=== PATIENT | female | born 1965 | race Caucasian/White ===

== ENCOUNTER → 2018-04-21 08:58 | Outpatient (POV) | payer BC, SELFPAY | PROVIDERS: Visit Provider Dermatology | DX: Z00.00 Encounter for general adult medical examination without abnormal findings (principal) ==

== ENCOUNTER → 2021-02-13 10:44 | Outpatient (POV) | payer BC, SELFPAY | PROVIDERS: Visit Provider Dermatology | DX: Z00.00 Encounter for general adult medical examination without abnormal findings (principal) ==

== ENCOUNTER 2025-04-15 11:15 | Outpatient (CLI) | payer BC, SELFPAY ==
--- OUTSIDE RECORDS SUMMARY | 2025-04-15 11:18 | XMS_ITS | CCD ---
Author Name Interface, [email or web address] lity Address [address] [place] [address] Organization [facility] Address [address] [place] [address] Care Team Providers Care Sales Department Clerk Name Role Phone Martin JOEL, Antoine Norris Unavailable Unavailable Allergies and Adverse Reactions Medication/Group Name Reaction Severity Date Lortab 09/22/2018 Sulfa (Sulfonamide Antibiotics) 09/22/2018 Reason for Visit 3 mo fu Functional Status Date Name/Question Score/Answer 09/22/2018 ECOG performance status - grade 0 0 06/23/2018 ECOG performance status - grade 0 0 Medications Date Name Route Dose Frequency Instructions Start Date End Date Status Fill Status Indication 06/23 Alprazo ritchie Oral orally 0.25 mg 2 times per day active 06/23 Ibuprof en Oral orally 1.0 capsul e every 6 to 8 hours prn fever active 06/23 Ranitid ine Oral orally 150.0 mg daily active 06/23 Multivi tamins Oral Tablet active 06/23 Fluocin onide Topical Cream 0.05 % topicall y 1.0 2 to 4 times per day prn itching active Problems Diagnosis Status Date of Diagnosis Resolution Date Inguinal lymphadenopathy Active Iliac lymphadenopathy Active Psoriasis Active Migraine headache Active History of hysterectomy Active Abdominal pain (finding) Active Social History Date Name Value 06/08/2018 Sex Female
--- OUTSIDE RECORDS SUMMARY | 2025-04-15 11:18 | XMS_ITS ---
Author Name Interface, [email or web address] lity Address [address] [id number] Organization [facility] Address [address] [place] [address] Allergies and Adverse Reactions Medication/Group Name Reaction Severity Date Lortab 09/22/2018 Sulfa (Sulfonamide Antibiotics) 09/22/2018 Plan Date Type Value 09/22/2018 APPOINTMENT 3 mo md leonard 09/22/2018 APPOINTMENT 3 mo md leonard 10/05/2018 LAB_ORDER CT abdomen/pelvi s w/ contrast Reason for Visit 3 mo md leonard Encounters Date Name 09/22/2018 History of hysterect jayleen 09/22/2018 Iliac lymphadenopath y 09/22/2018 Inguinal lymphadenop athy Medications Date Name Route Dose Frequency Instructions Start Date End Date Status Fill Status Indication 06/23 Multivi tamins Oral Tablet active 06/23 Fluocin onide Topical Cream 0.05 % topicall y 1.0 2 to 4 times per day prn itching active 06/23 Ranitid ine Oral orally 150.0 mg daily active 06/23 Alprazo ritchie Oral orally 0.25 mg 2 times per day active 06/23 Ibuprof en Oral orally 1.0 capsul e every 6 to 8 hours prn fever active Problems Diagnosis Status Date of Diagnosis Resolution Date Inguinal lymphadenopathy Active Iliac lymphadenopathy Active Psoriasis Active Migraine headache Active History of hysterectomy Active Abdominal pain (finding) Active Vital Signs Date Type Value 09/22/2018 Body Temperature 98.00 09/22/2018 Heart Beat 82.00 09/22/2018 Respiratory Rate 14.00 09/22/2018 Intravascular Systolic 120 09/22/2018 Intravascular Diastolic 82 09/22/2018 BSA 1.89 09/22/2018 Weight 169.40 09/22/2018 Height 66.00 09/22/2018 BMI 27.34 09/22/2018 Pain Scale 2.00
--- OUTSIDE RECORDS SUMMARY | 2025-04-15 11:18 | XMS_ITS | Data Portability ---
[facility] Address [address] [place] [address] Care Team Providers Care Frog Farmer Name Role Phone LARRY YAN Primary Care Provider Assessment No assessment recorded. Plan of Treatment Reminders Order Date Submit Date Provider Last Modified By Organization Details Last Modified Time Details Appointments None recorded. Lab None recorded. Referral None recorded. Procedures None recorded. Surgeries None recorded. Imaging XR, knee [address], [address] [place] [address] [place], [address], 5 07:19:05 XR, knee [address], [address] [place] [address] [place], [address], 5 07:19:05 Medication Orders Kenalog 10 mg/mL suspension for injection [address] [facility] [place], [address], 5 07:19:05 bupivacaine (PF) 0.5 % (5 mg/mL) injection solution [address] [facility] [place], [address], 5 07:19:05 Patient TargetsNo targets recorded. Patient InstructionsNo instructions recorded. Reason for Referral None Reported. Results Created Date Observation Date Name Description Value Unit Range Abnormal Flag Note LastModifiedBy Organization Detail LastModifiedTime 02/18/20 25 XR, knee No observ ation record ed. [address] [place], [address], 02/17/2025 10:24:06 02/18/20 25 XR, knee No observ ation record ed. [address] [place], [address], 02/17/2025 10:23:54 Result Notes None recorded. Medical Equipment None Reported. Medications Name Sig Start Date Stop Date Status Note LastModified by Organization Details LastModified Time Kenalog 10 mg/mL suspension for injection Take 2 mL by injection route. 2024 active Not Available Not Available Not Avai lable buspirone 7.5 mg tablet TAKE 1 TABLET BY MOUTH TWICE DAILY active Not Available Not Available No t Available bupivacaine (PF) 0.5 % (5 mg/mL) injection solution Take 2 mL by injection route. 2024 active Not Available Not Available Not Avai lable duloxetine 20 mg capsule,delay ed release TAKE 1 CAPSULE BY MOUTH ONCE DAILY active Not Available Not Available No t Available Vitals None Recorded Social History None recorded. Functional Status None recorded. Mental Status None recorded. Family History Relationship Description Onset Age of this Age Resolved Age Notes LastModified by Organization Details LastModified Time Mother Myocardial infarction pt. added direct ly (02/17) [email or web address] Not available 02/17/2025 09:16:46 Mother Hypertensive disorder pt. added direct ly (02/17) [email or web address]-13 Not available 02/17/2025 09:16:46 Medical History No medical history recorded. Gynecological HistoryNo gynecological history recorded. Obstetrics History GPAL:G 0 P 0 0 0 0 Immunizations Vaccine Type Date Status Note Provider Nam e and Address Organization Details Recorded Time [facility] 8 completed Not Available [facility] 02/17/2025 09:24:06 DTP 8 completed Not Available [facility] 02/17/2025 09:24:06 DTP 8 completed Not Available [facility] 02/17/2025 09:24:06 DTP 8 completed Not Available [facility] 02/17/2025 09:24:06 measles 9 completed Not Available [facility] 02/17/2025 09:24:06 DTP 9 completed Not Available [facility] 02/17/2025 09:24:06 rubella 0 completed Not Available [facility] 02/17/2025 09:24:06 Vaccinia (smallpox, mpox), live 1 completed Not Available [facility] 02/17/2025 09:24:06 Td(adult) unspecified formulation 9 completed Not Available [facility] 02/17/2025 09:24:06 Hep B, adult 9 completed Not Available [facility] 02/17/2025 09:24:06 Hep B, adult 9 completed Not Available [facility] 02/17/2025 09:24:06 Td(adult) unspecified formulation 9 completed Not Available [facility] 02/17/2025 09:24:06 MMR 9 completed Not Available [facility] 02/17/2025 09:24:06 Hep B, adult 0 completed Not Available [facility] 02/17/2025 09:24:06 Influenza, split virus, quadrivalent, PF 6 completed Not Available [facility] 02/17/2025 09:24:06 Tdap 8 completed Not Available [facility] 02/17/2025 09:24:06 zoster recombinant 1 completed Not Available [facility] 02/17/2025 09:24:06 zoster recombinant 1 completed Not Available [facility] 02/17/2025 09:24:06 Past Encounters Encounter ID Performer Location Encounter Start Date Encounter Closed Date Diagnosis/Indication Diagnosis SNOMED-CT Code Diagnosis ICD10 Code Diagnosis IMO Codes Diagnosis Note [id number] MD ALISSON Almanzar [address] [place] [address] 02/17/2025 09:06:25 02/17/2025 10:51:09 Osteoarthritis of right knee joint 4443149511 31553 M17.11 4614113 Osteoarthr itis of left knee joint 3097573684 93239 M17.12 0611308 Health Concerns Section Related Observation LastModified by Organization Detai ls LastModified Time None Recorded Concern Status LastModified by Organization Details LastModified Time None Recorded Advance Directives Directive None Recorded Payers Insurance Date Sequence Insurance Name Policy Number Policy Flores Covered Member ID Flores Member ID Guarantor Name 04/29/2019 1 *SELF PAY* Abdullahi Mtz 02/22/2025 1 [employer]: [employer] [place] [id number] Evan Mtz [id number] Mtz Notes Date Note Type Note Provider Name and Address Organization Details Recorded Time 02/17/2025 text/html ROS as noted in the HPI 59 year old female here today chronic bilateral knee pain ongoing for 5+ years. She states pain feels like it is under the patella. Right knee is worse than left. She is taking ibuprofen as needed. X-rays of bilateral knees taken in office today. Raheem Mcneil MD [address], [place], [address], [facility] - [place] & [place] 02/21/2025 07:21:51 OBGyn Episode No OBEpisode recorded.
--- OUTSIDE RECORDS SUMMARY | 2025-04-15 11:18 | XMS_ITS | Continuity of Care Document ---
Author Organization [facility] Address [address] [place] [address] [address]na [address] [place] [address] Care Team Providers Care Dye Colorist Formulator Name Role Phone SANTHOSH YANKina Primary Care Provider Assessment No assessment recorded. Plan of Treatment Reminders Order Date Submit Date Provider Last Modified By Organization Details Last Modified Time Details Appointments None recorded. Lab None recorded. Referral None recorded. Procedures None recorded. Surgeries None recorded. Imaging XR, knee [id number] [place] [address], [address] [place] [address] [place], [address], 5 07:19:05 XR, knee [id number] [place] [address], [address] [place] [address] [place], [address], 5 07:19:05 Medication Orders Kenalog 10 mg/mL suspension for injection [address] [facility] [place], [address], 5 07:19:05 bupivacaine (PF) 0.5 % (5 mg/mL) injection solution [address] [facility] [place], [address], 07:19:05 Patient TargetsNo targets recorded. Patient InstructionsNo instructions recorded. Reason for Referral None Reported. Results Created Date Observation Date Name Description Value Unit Range Abnormal Flag Note LastModifiedBy Organization Detail LastModifiedTime 02/18/20 XR, knee No observ ation record ed. CARL Arthur [address] [place], [address], 02/17/2025 10:24:06 02/18/20 XR, knee No observ ation record ed. CARL Arthur [address] [place], [address], 02/17/2025 10:23:54 Result Notes None recorded. Medical [...] e and Address Organization Details Recorded Time DT 8 completed Not Available [facility] 02/17/2025 09:24:06 DTP 8 completed Not Available [facility] 02/17/2025 09:24:06 DTP 8 completed Not Available [facility] 02/17/2025 09:24:06 DTP 8 completed Not Available [facility] 02/17/2025 09:24:06 measles 9 completed Not Available [facility] 02/17/2025 09:24:06 DTP 9 completed Not Available [facility] 02/17/2025 09:24:06 rubella 0 completed Not Available [facility] 02/17/2025 09:24:06 Vaccinia (smallpox, mpox), live 1 completed Not Available [facility] 02/17/2025 09:24:06 Td(adult) unspecified formulation 9 completed Not Available [facility] 02/17/2025 09:24:06 Hep B, adult 9 completed Not Available [facility] 02/17/2025 09:24:06 Hep B, adult 9 completed Not Available [facility] 02/17/2025 09:24:06 Td(adult) unspecified formulation 9 completed Not Available [facility] 02/17/2025 09:24:06 MMR 9 completed Not Available [facility] 02/17/2025 09:24:06 Hep B, adult 0 completed Not Available [facility] 02/17/2025 09:24:06 Influenza, split virus, quadrivalent, PF 6 completed Not Available [facility] 02/17/2025 09:24:06 Tdap 8 completed Not Available [facility] 02/17/2025 09:24:06 zoster recombinant 1 completed Not Available [facility] 02/17/2025 09:24:06 zoster recombinant 1 completed Not Available [facility] 02/17/2025 09:24:06 Past Encounters Encounter ID Performer Location Encounter Start Date Encounter Closed Date Diagnosis/Indication Diagnosis SNOMED-CT Code Diagnosis ICD10 Code Diagnosis IMO Codes Diagnosis Note [id number] Raheem Mcneil MD [facility] [address] [place] [address] 02/17/2025 09:06:25 02/17/2025 10:51:09 Osteoarthritis of right knee joint [id number] [address] M17.11 4483006 Osteoarthr itis of left knee joint 7199741411 35323 M17.12 1771873 Health Concerns Section Related Observation LastModified by Organization Detai ls LastModified Time None Recorded Concern Status LastModified by Organization Details LastModified Time None Recorded Payers Encounter Date Sequence Insurance Name Policy Number Policy Flores Covered Member ID Flores Member ID Guarantor Name 02/17/2025 1 [employer]: [employer] [facility] [id number] Evan Mtz [id number] Mtz Notes Date Note Type [...] in office today. Raheem Mcneil MD [address], [place], [address], [facility] - [place] & [place] 02/21/2025 07:21:51 OBGyn Episode No OBEpisode recorded.
--- OUTSIDE RECORDS SUMMARY | 2025-04-15 11:18 | XMS_ITS | Clinical Summary ---
Author Organization Healthcare Address [address] [place] [address] Care Team Providers Care Ceramic Engineer Name Role Phone Yonis Leonard APRN Primary Care Provider [phone] Allergies Active Allergy Reactions Criticality Noted Date Comments Hydrocodone-Acetaminophen Unknown - Mariela ent states they do not know rxn details Low 07/02/2007 Levofloxacin Other - please docum ent in the comment field Medium 07/26/2021 Sulfa Drugs Rash Low 07/26/2021 Medications DULoxetine (Cymbalta) [address] capsule 3 Active clobetasol (Temovate) 0.05 % external solution 4 Active busPIRone (Buspar) 7.5 MG tablet 3 Active betamethasone dipropionate (Diprolene) 0.05 % cream 4 Active estrogens, conjugated, (Premarin) vaginal cream 2 Active Ibuprofen 200 MG capsule Take 1 capsule by mouth. Active tretinoin (Retin-A) 0.025 % cream 2 Active Active Problems No known active problems Encounters Date Type Department Care Team Description 01/20/2025 Travel from Last 3 Months Family History Medical History Relation Name Comments Cataracts Maternal Grandmother Hypertension Mother Relation Name Status Comments Maternal Grandmother Mother Social History Tobacco Use Types Packs/Day Years Used Date Smoking Tobacco: Never Passive Smoke Exposure: Never Tobacco Cessation:Counseling Given: Not Answered Comments Unknown Sex and Gender Information Value Date Recorded Sex Assigned at Not on file Legal Sex Female 8:07 PM EDT Gender Identity Not on file Sexual Orientation Not on file Plan of Treatment Health Maintenance Due Date Last Done Comments [facility]-Depression Screening 1965 [facility]-HIV Screening 1965 [facility]-Hepatitis C Screening 1965 [facility]-Infant/Child/Adol SDOH Screenings 1965 [facility]- SDOH Screenings 1985 [facility]-Adult SDOH Screenings 1985 [facility]-Pap Smear 09/13/2010 09/14/2007 CT Colonography 2012 Colonoscopy 2012 FIT-DNA 2012 FIT 2012 FOBT 2012 Sigmoidoscopy 2012 [facility]-Colorectal Cancer Screening 2012 [facility]-Cervical Cancer Screening 09/13/2012 [facility]-HPV/Cotest 09/13/2012 09/14/2007 [facility]-Pneumococcal Vaccine: 50+ Years (1 of 1 - PCV) 2017 IUZ-IALSN-55 Vaccine (1 - season) 2025 [facility]-Influenza Vaccine (#1) 2025 04/24/2016 [facility]-Breast Cancer Screening 05/13/2026 12/0 10/2023, 05/13/2024, 05/08/2023, Additional history exists [facility]-DTaP,Tdap,and Td Vaccines (7 - Td or Tdap) 09/16/2027 09/15/2017, 01/26/1999, 01/12/1979, Additional history exists [facility]-IPV Vaccines Aged Out 11/22/1968, , 1967 No longer eligible based on patient's age to complete this topic [facility]-Hepatitis B Vaccines Completed 000, 01/11/1999, 11/24/1998 [facility]-Zoster Vaccines Completed 11/15/2020, HPV Vaccines Aged Out No longer eligi ble based on patient's age to complete this topic [facility]-HIB Vaccines Aged Out No longer e ligible based on patient's age to complete this topic [facility]-Hepatitis A Vaccines Aged Out No longer eligible based on patient's age to complete this topic [facility]-Rotavirus Vaccines Aged Out No lo nger eligible based on patient's age to complete this topic Procedures Procedure Name Priority Date/Time Associated Diagnosis Comments CYTO DATA CONVERSION Routine 09/14/2007 12:00 AM EDT from Last 3 Months or Most Recently Relevant to Health Maintenance Results * Cytology (09/14/2007 12:00 AM EDT) 09/14/2007 09/15/2007 2:0 5 PM EDT Narrative SUNQUEST - 09/22/2007 3:57 PM EDT [facility] MR #: [id number] [facility] [address], [place] [address] 1965 (Age: 42) FW Collect Date: 09/14/2007 00:00 Receipt Date: 09/15/2007 14:05 Page 1 DEPARTMENT OF PATHOLOGY AND LABORATORY MEDICINE CYTOPATHOLOGY REPORT Email: [email or web address] ATTENDING MD/Practitioner: Caren Burk M.D. [place] [facility] [place] [facility] Reported: 09/22/2007 15:57 Collected: 09/14/2007 00:00 INTERPRETATION A. THIN PREP (CERVICAL/VAGINAL): NEGATIVE FOR INTRAEPITHELIAL LESION OR MALIGNANCY. SATISFACTORY FOR EVALUATION; ENDOCERVICAL/TRANSFORMATION ZONE COMPONENT ABSENT/INSUFFICIENT. Slide scanned and imaged by [employer] ThinPrep Imaging System with manual review of all selected garibay. Electronically Signed Out By CHARLES Jurado(ASCP). CHARLES Jurado(ASCP). Cervical cytology is a screening test primarily for squamous cancers and precursors and has associated false negative and positive results. New technologies such as liquid based sampling may decrease but will not eliminate all false negative results. Regular screening and follow-up of unexplained clinical signs and symptoms are recommended to minimize false negative results. Please see the ASCCP website (www.asccp.org) for followup recommendations. If HPV testing was requested, correlation with the results is suggested (please call Microbiology at [phone] for results). CLINICAL INFORMATION: Menstrual History: {Not Provided} Date of Last Menstrual Period: 08/31 Other Clinical Conditions: Abnormal pap results elsewhere: DATE NOT PROVIDED SPECIMEN DESCRIPTION: A: THIN PREP (CERVICAL/VAGINAL) THIN PREP PROCESS CELLULAR ENHANCEMENT ICD: 795.01 (ASC-US) PAPANICOLAOU SMEAR OF CERVIX W/ATYPICAL SQUAMOUS CELLS OF UNDETERMINED SIGNIFICANCE F: A; DX IMAGE [id number] SNOMED CODES: A; [id number] [id number] In cases where a pathologist has signed out the report, the service has been rendered in part by a resident. The signing pathologist has performed and is responsible for the reported pathologic evaluation. us Historical Provider LAB PATHOLOGY ORDERABLES Fin al Result SUNQUEST from Last 3 Months or Most Recently Relevant to Health Maintenance Insurance ANTHEM Care Teams Ceramic Engineer Relationship Specialty Start Date End Date Yonis Leonard APRN [address] [place] [id number] PCP - General 01/11/25
--- OUTSIDE RECORDS SUMMARY | 2025-04-15 11:18 | XMS_ITS | Continuity of Care Document ---
Author Organization [facility] Address [address] [place] [address] Care Team Providers Care Manager Credit Collections Name Role Phone STEPHIE ORELLANA Primary Care Provider Assessment No assessment recorded. Plan of Treatment Reminders Order Date Submit Date Provider Last Modified By Organization Details Last Modified Time Details Appointments None recorded. Lab None recorded. Referral orthopedic surgeon referral - xrays and CT ordered with [facility] 2024 025 CARL Mcneil MD, [address] [place] [address] , [place], [address], 5 13:02:22 Procedures None recorded. Surgeries None recorded. Imaging XR, knee, 3 view 2024 025 [facility] hospital, [address] [place] [address] , [place], [address], 5 04:12:49 XR, chest, 2 view 2024 025 Critical access hospital, [address] [place] [address] , [place], [address], 5 04:12:49 Medication Orders None recorded. Patient TargetsNo targets recorded. Patient InstructionsNo instructions recorded. Reason for Referral Orthopedic Surgeon Referral for Pain of knee region xrays and CT ordered with [facility] Referring Physician: Yonis Leonard, Family Medicine, Encounter Date: 02/14/2025 Results Created Date Observation Date Name Description Value Unit Range Abnormal Flag Note LastModifiedBy Organization Detail LastModifiedTime 02/24/[address], neck, soft tissu e, w/ contr ast No observ ation record ed. [facility] [address] [facility] [address], [place], [address], 02/24/2025 09:55:50 03/22/20 25 US, neck, soft tissu e No observ ation record ed. [address] , [place], [address], 03/22/2025 16:31:30 Result Notes None recorded. Problems Name Problem SNOMED Code Status Onset Date Resolution Date Notes Provider Name and Address Organization Details Recorded Time Psoriasis 0149736 Active 2016 [place] Sheikh - [facility] 7 09:23:01 Arthritis 1553802 Active 2016 [place] Sheikh - [facility] 7 09:23:09 Chronic pelvic pain of female 518522033 Active 2016 [place] Graves - [facility] 7 09:47:22 Steriliza tion requested 013657845 Completed 201603/05/2018 [facility] [address], [place], [address], [facility] - [facility] 8 08:27:24 Menopausa l syndrome 848725622 Active 2017 [place] - [facility] 8 09:04:49 Pain in pelvis 39057694 Completed 201705/20/2018 [facility] [address], [place], [address], [place] - [facility] 8 08:29:05 Anxiety 25042949 Active 2018 [place] - [facility] 9 09:06:38 Simple endometri al hyperplas ia 373536306 Active 2019 Cammie Quintero APRN [address], [place], [address], [place] - [facility] 0 15:50:50 Exposure to SARS-CoV- 2 Active 2020 Carolyn Mendosa null, [place] - [facility] 1 12:30:37 Exposure to SARS-CoV- 2 Active 2020 Claudia Edmond MD [address], [place], [address], [place] [facility] 1 12:46:06 Postmenop ausal bleeding 13646347 Active 2020 Claudia Edmond MD [address], [place], [address], [place] - [facility] 1 12:52:28 Atrophic vaginitis 84183681 Active 2020 Claudia Edmond MD [address], [place], [place], [address], [place] - [facility] 1 12:52:29 Recurrent urinary tract infection 307284754 Active 2020 Meghan Lee, [employer] [address], [place], [address], [place] - [facility] 1 14:17:12 Problem Notes None recorded. Procedures Surgical History Date Name Laterality Status Provider Name and Address Organization Details Recorded Time 022 Date of Last Colonoscopy completed Dianne Lawrence [place] - [facility] 03/04/2024 13:56:28 021 Sonohysterography completed Claudia Edmond MD [address], [place], [address], [place] - [facility] 09/26/2020 22:05:49 020 Date of Last Mammogram completed Carolyn Mendosa [place] - [facility] 04/03/2020 14:14:29 020 Hysteroscopy completed Claudia Edmond MD [address], [place], [place], [address], [place] - [facility] 09/01/2020 12:37:27 020 Endometrial Biopsy completed Cammie Quintero APRN [address], [place], [address], [place] [facility] 10/03/2019 19:56:44 020 Endometrial Biopsy completed Carolyn Mendosa [place] - [facility] 10/13/2019 14:01:58 019 Cystourethroscopy completed Claudia Edmond MD [address], [place], [address], [place] - [facility] 09/26/2020 13:29:20 018 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 Ramirez Magaña [place] - [facility] 05/21/2018 13:54:51 018 Date of Last Pap Smear completed [facility] [address], [place], [address], [place] - [facility] 05/05/2018 10:33:41 018 Hysteroscopy completed [facility] [address], [place], [address], [facility] - [facility] 08/05/2017 14:26:19 018 Dilation and curettage completed [facility] [address], [place], [address], [facility] - [facility] 08/05/2017 14:26:35 018 salpingectomy completed [facility] [address], [place], [address], [place] - [facility] 08/18/2017 14:49:20 011 delivery completed Yumi Dominguez [place] - [facility] 01/23/2017 09:30:29 008 delivery completed [place] Dom[place] [facility] 01/23/2017 09:30:19 005 Cholecystectomy, laparoscopic completed Yumi Doming[place] [facility] 01/23/2017 09:30:03 004 Eye Surgery completed Yumi Dom[place] [facility] 01/23/2017 09:30:47 Ankle arthroscopy/surgery completed Carolyn [place]osa [place] [facility] 07/05/2020 15:14:56 Pinch graft up to 2 cm diam completed [place]umi Dom[place] [facility] 01/23/2017 09:29:01 Imaging Results None recorded. Procedure Notes None recorded. Medical Equipment None Reported. Allergies Allergen ID Allergen Name Allergen Category Reaction Reaction Severity Criticality Documentation Date Start Date Code Code System Note Provider Name and Address Organization Details Recorded Time 130031 Levaquin medicatio n Not available Not available Not available 09/14/2020 28896 2 RxNorm achil le tendo n ruptu re Mary Mendosa null, [place] - [facility] 1 13:03:03 86093 Substance with sulfonami de structure and antibacte rial mechanism of action (substanc e) medicatio n rash Not available Not available 03/15/20162007 40060 8003 SNOMED Lily Connor null, [place] - [facility] 7 14:36:29 98802 acetamino phen / hydrocodo ne medicatio n Not available Not available Not available 05/14/2017 98514 2 RxNorm Brandeeeugenia Carney null, [place] - [facility] 1 11:20:44 02759 acetamino phen / hydrocodo ne medicatio n Not available Not available Not available 05/14/2017 61744 2 RxNorm Brandee Carney null, [place] - [facility] 1 11:20:47 Medications Name Sig Start Date Stop Date Status Note LastModified by Organization Details LastModified Time estradiol /estriol( ) 0.625mg/0 .1ml APPLY 0.1ml vaginall y one time PER DAY NEEDED FOR vaginal dryness. 02/23 completed Not Available Not Available Not Available medroxypr ogesteron e 10 mg tablet TK 1 T PO D 07/05 completed Not Available Not Available Not Available Levbid 0.375 mg tablet,ex tended release 02/01 completed Levbid 0.375 mg oral tablet extended release 12 hr;Recor ded Status: Recorded on: 04/12/20 08 2:32PM;D iscontin ued Status: Disconti nued on: 02/02/20 10 1:24PM;U ser: [email or web address] Not Available Not Available Not Available metformin 500 mg tablet one po @ hs 02/01 completed metformi n 500 mg oral tablet;R ecorded Status: Recorded on: 03/13/20 09 10:15AM; Disconti nued Status: Disconti nued on: 02/02/20 10 1:24PM;U ser: [email or web address] Not Available Not Available Not Available cefuroxim e axetil 250 mg tablet TAKE 1 TABLET BY MOUTH EVERY 12 HOURS FOR 10 DAYS 10/10 completed Not Available Not Available Not Available Vitamin C 500 mg tablet take 2 tablets by oral route daily 2015 active Not Available Not Available Not Avai lable triazolam 0.25 mg tablet TAKE 1 TABLET BY MOUTH AT BEDTIME THE NIGHT BEFORE APPOINTM ENT. TAKE 2ND TABLET ONE HR PRIOR TO APPT, BRING 3RD TABLET TO APPT 10/08 completed Not Available Not Available Not Available azithromy marisol 250 mg tablet TAKE 2 TABLETS (500 MG) BY ORAL ROUTE ONCE DAILY FOR 1 DAY THEN 1 TABLET (250 MG) BY ORAL ROUTE ONCE DAILY FOR 4 DAYS 02/23 completed Not Available Not Available Not Available fosfomyci n trometham ine 3 gram oral packet Take 1 packet every other day by oral route for 6 days. 10/08 completed Not Available Not Available Not Available fluconazo le 150 mg tablet TAKE 1 TABLET BY MOUTH NOW. REPEAT DOSE IN 3 DAYS 10/08 completed Not Available Not Available Not Available ampicilli n 500 mg capsule 07/05 completed Not Available Not Available Not Available citalopra m 10 mg tablet 10/08 completed Not Available Not Available Not Available prednicar eliseo 0.1 % topical cream 05/14 completed Not Available Not Available Not Available medroxypr ogesteron e 2.5 mg tablet TAKE 1 TABLET BY MOUTH EVERY DAY 09/01 completed Not Available Not Available Not Available hydrocodo ne 5 mg-acetam inophen 325 mg tablet TK 1 T PO Q 8 H PRN FOR PAIN 07/05 completed Not Available Not Available Not Available tretinoin 0.025 % topical cream APPLY TO THE AFFECTED AREA(S) BY TOPICAL ROUTE ONCE DAILY AT BEDTIME 02/14 completed Not Available Not Available Not Available phenazopy ridine 200 mg tablet TK 1 T PO TID AFTER MEALS FOR 3 DAYS 07/05 completed Not Available Not Available Not Available prednison e 20 mg tablet TAKE 1 TABLET BY MOUTH TWICE DAILY FOR 5 DAYS 02/23 completed Not Available Not Available Not Available fluocinon luis eduardo 0.05 % topical ointment 05/27 completed Not Available Not Available Not Available ciproflox acin 250 mg tablet TAKE ONE (1) TABLET TWICE A DAY BY ORAL ROUTE FOR 7 DAYS. 09/25 completed Not Available Not Available Not Available doxepin 10 mg capsule TAKE 1 CAPSULE BY MOUTH ONCE DAILY IF NEEDED 07/05 completed Not Available Not Available Not Available Zantac 75 mg tablet take 1 tablet (75 mg) by oral route once daily with a glass of water 09/30 completed Not Available Not Available Not Available Zantac 150 mg tablet take 1 tablet (150 mg) by oral route once daily at bedtime 02/21 completed Zantac 150 mg oral tablet;R ecorded Status: Recorded on: 09/02/19 12 3:15PM;D iscontin ued Status: Disconti nued on: 02/22/20 14 11:30AM; User: [facility] Not Available Not Available Not Available Vitamin tablet take 1 tablet by oral route once daily for 30 days 09/01 completed Vitamin Oral Tablet;R ecorded Status: Recorded on: 02/02/20 10 2:04PM;D iscontin ued Status: Disconti nued on: 09/02/19 12 2:48PM;U ser: [email or web address]; Est. Completi on: 01/28/20 11;Indic ation: Pregnanc y - ([id number]);Prin addis: 02/02/20 10 Not Available Not Available Not Available meloxicam 7.5 mg tablet TAKE 1 TABLET BY MOUTH EVERY DAY AFTER A MEAL 09/29 completed Not Available Not Available Not Available oxycodone -acetamin ophen 5 mg-325 mg tablet 08/07 completed Not Available Not Available Not Available alprazola m 0.25 mg tablet TAKE 1/2 TABLET BY MOUTH ONCE DAILY IF NEEDED 10/08 completed Not Available Not Available Not Available famotidin e 20 mg tablet Take 2 tablets every day by oral route at bedtime. active over the counter Not Available Not Available Not Available Multiple Vitamins tablet take 1 tablet by oral route once daily with food 2011 active Not Available Not Available Not Avai lable Micronor (28) 0.35 mg tablet take 1 tablet by oral route once daily for 28 days 02/21 completed Micronor (28) 0.35 mg oral tablet;R ecorded Status: Recorded on: 04/16/20 12 4:47PM;D iscontin ued Status: Disconti nued on: 02/22/20 14 11:31AM; User: Suzette Rinaldi on: 12/24/19 13 Not Available Not Available Not Available tobramyci n 0.3 % eye drops INT 1 GTT IN OS QID FOR 7 DAYS 07/05 completed Not Available Not Available Not Available Zithromax Z-Garrison 250 mg capsule as directed 04/12 completed Zithroma x Z-Garrison 250 mg oral capsule; Recorded Status: Recorded on: 03/12/20 08 10:02PM; Disconti nued Status: Disconti nued on: 04/12/20 08 2:32PM;U ser: [email or web address] Not Available Not Available Not Available ibuprofen 400 mg tablet TAKE 1 TABLET (400 MG) BY ORAL ROUTE EVERY night NEEDED 10/08 completed Not Available Not Available Not Available betametha sone dipropion ate 0.05 % topical cream as needed active Not Available Not Available No t Available buspirone 7.5 mg tablet TAKE 1 TABLET BY MOUTH TWICE DAILY active Not Available Not Available No t Available aspirin 81 mg chewable tablet 11/06 completed aspirin 81 mg oral tablet,karen anderson; Recorded Status: Recorded on: 02/02/20 10 1:24PM;D iscontin ued Status: Disconti nued on: 11/07/19 11 11:48AM; User: [email or web address] Not Available Not Available Not Available estradiol 0.5 mg tablet TAKE 1 TABLET BY MOUTH EVERY DAY 09/01 completed Not Available Not Available Not Available clobetaso l 0.05 % topical ointment APPLY SMALL AMOUNT TOPICALL Y TO THE AFFECTED AREA TWICE DAILY prn 02/14 completed Not Available Not Available Not Available fluocinon luis eduardo 0.05 % topical solution PRN 09/30 completed Not Available Not Available Not Available cefuroxim e axetil 500 mg tablet TAKE 1 TABLET BY MOUTH EVERY 12 HOURS FOR 10 DAYS 10/08 completed Not Available Not Available Not Available estradiol 0.01% (0.1 mg/gram) vaginal cream APPLY ONE HALF (1/2) GRAM ONCE WEEK THEN TITRATE TO TWICE WEEK TOLERATE D active Not Available Not Available No t Available albuterol sulfate HFA 90 mcg/actua tion aerosol inhaler INHALE 1 TO 2 PUFFS INTO LUNGS EVERY 4 HOURS NEEDED FOR WHEEZING 02/23 completed Not Available Not Available Not Available fluocinon luis eduardo 0.05 % topical cream 06/19 completed Not Available Not Available Not Available clobetaso l 0.05 % scalp solution APPLY A SMALL AMOUNT TO SCALP ONCE A DAY NEEDED active Not Available Not Available No t Available ondansetr on 4 mg disintegr ating tablet DISSOLVE 1 T BY MOUTH Q 8 H PRN 07/05 completed Not Available Not Available Not Available cefdinir 300 mg capsule 05/27 completed Not Available Not Available Not Available metformin ER 500 mg tablet,ex tended release 24 hr 04/12 completed metformi n 500 mg oral tablet extended release 24 hr;Recor ded Status: Recorded on: 03/12/20 08 10:04PM; Disconti nued Status: Disconti nued on: 04/12/20 08 2:32PM;U ser: [email or web address] [email or web address] Not Available Not Available Not Available Ambien 10 mg tablet prn 03/06 completed Ambien 10 mg oral tablet;R ecorded Status: Recorded on: 02/22/20 14 11:30AM; Disconti nued Status: Disconti nued on: 03/06/20 15 1:09PM;U ser: [email or web address] Not Available Not Available Not Available Clomid 50 mg tablet take 2 tablets (100 mg) days 3-7 08/02 completed Clomid 50 mg oral tablet;R ecorded Status: Recorded on: 07/13/19 10 10:57AM; Disconti nued Status: Disconti nued on: 08/02/19 10 1:57PM;U ser: [email or web address];Es t. Completi on: 07/18/19 10;Print ed: 07/13/19 10 Not Available Not Available Not Available amoxicill in 875 mg-potass ium clavulana te 125 mg tablet TAKE 1 TABLET BY MOUTH EVERY 12 HOURS FOR 7 DAYS 09/26 completed Not Available Not Available Not Available neomycin- polymyxin -hydrocor t 3.5 mg-10,000 unit/mL-1 % ear drops,matilda p INSTILL 2 DROPS INTO AFFECTED EAR(S) BY OTIC ROUTE 3 TIMES PER DAY- 5 days 02/14 completed Not Available Not Available Not Available Depo-Prov era 150 mg/mL intramusc ular syringe inject 1 millilit er (150 mg) by intramus cular route every 3 months 09/01 completed Depo-Pro vera 150 mg/mL intramus cular syringe; Recorded Status: Recorded on: 11/30/19 11 2:16PM;D iscontin ued Status: Disconti nued on: 09/02/19 12 2:48PM;U ser: [email or web address] Not Available Not Available Not Available Premarin 0.625 mg/gram vaginal cream Insert 0.25 applicat orsful twice a week by vaginal route at bedtime. 07/05 completed Not Available Not Available Not Available Prenate Elite 90 mg-1 mg-50 mg tablet 1 PO Q D WITH FOOD 11/06 completed Prenate Elite 90-1-50 mg oral tablet;R ecorded Status: Recorded on: 03/12/20 08 10:02PM; Disconti nued Status: Disconti nued on: 11/07/19 11 11:48AM; User: [email or web address] lou Not Available Not Available Not Available nitrofura ntoin monohydra te/macroc rystals 100 mg capsule TAKE 1 CAPSULE BY MOUTH EVERY DAY DIRECTED 11/21 completed Not Available Not Available Not Available duloxetin e 20 mg capsule,d elayed release one tab daily 2024 active Not Available Not Available Not Avai lable melatonin 09/01 completed Not Available Not Available Not Available vitamin B complex Take 1 tablet QD active Not Available Not Available No t Available zinc 09/29 completed Not Available Not Available Not Available 11/29 completed Multivit amins;Re corded Status: Recorded on: 03/12/20 08 10:04PM; Disconti nued Status: Disconti nued on: 11/30/19 09 4:21PM;U ser: [email or web address] [email or web address] Not Available Not Available Not Available glucosami ne-chondr oit-C-Mn- boron 750 mg-600 mg-30 mg-1mg-1. 5mg tablet 02/01 completed glucosam -chondr- vit C-Mn-bor on 750-600- 30-1 mg oral tablet;R ecorded Status: Recorded on: 04/12/20 08 2:32PM;D iscontin ued Status: Disconti nued on: 02/02/20 10 1:24PM;U ser: [email or web address] Not Available Not Available Not Available azelastin e 205.5 mcg (0.15 %) nasal spray 05/27 completed Not Available Not Available Not Available Lysteda 650 mg tablet take 2 tablets (1,300 mg) by oral route 3 times per day during menses for 5 days 01/07 completed Lysteda 650 mg oral tablet;P rescribe Status: Prescrib ed on: 03/06/20 15 2:21PM;D iscontin ued Status: Disconti nued on: 01/08/20 16 4:34PM;U ser: [email or web address]; Est. Completi on: 04/05/20 15;Pharm acyVerif ied: 03/06/20 15 2:21PM Not Available Not Available Not Available Vitamin D3 50 mcg (2,000 unit) capsule take 1 capsule by oral route daily 2015 active Not Available Not Available Not Avai lable Topicort 0.25 % topical spray 05/14 completed Not Available Not Available Not Available Fluarix Quad 7886-4780 (PF) 60 mcg (15 mcg x 4)/0.5 mL IM syringe 05/14 completed Not Available Not Available Not Available cannabidi ol (CBD) oral oil Take by oral route. 10/08 completed Not Available Not Available Not Available Vitals Date Recorded Body height Body mass index (BMI) Body weight Pain severity - 0-10 verbal numeric rating [Score] - Reported Heart rate Oxygen saturation Oxygen saturation in Arterial blood by Pulse oximetry Respiratory rate Body temperature Systolic And Diastolic Provider Name and Address Organization Details Last Updated DateTime 5 170.18 cm 30.2 kg/m2 56442.3 3 g 5 83 /min 97 % 97 % 18 /min 97.9 [degF] 122/74 mm[Hg] Rand Harris [place] - [facility] 5 08:27:45 Social History Question Answer Notes LastModified by Organizat ion Details LastModified Time Tobacco Smoking Status Never Smoker Yumi patel, [place] - [facility] 01/23/2017 09:27:40 Do You Have An Advance Directive? No Information not available 01/23/2017 Are You Blind Or Do You Have Difficulty Seeing? No Information not available 01/23/2017 Is Blood Transfusion Acceptable In An Emergency? Yes Information not available 01/23/2017 What Is Your Level Of Caffeine Consumption? Occasional Information not available 05/27/2019 How Much Tobacco Do You Chew? None Information not available 01/23/2017 Are You Deaf Or Do You Have Serious Difficulty Hearing? No Information not available 01/23/2017 What Type Of Diet Are You Following? REGULAR Information not available 01/23/2017 Which Illicit Or Recreational Drugs Have You Used? None [email or web address] Information not available 05/14/2017 What Is The Highest Grade Or Level Of School You Have Completed Or The Highest Degree You Have Received? [id number] [email or web address] Information not available 10/01/2019 How Many Days Of Moderate To Strenuous Exercise, Like A Brisk Walk, Did You Do In The Last 7 Days? 3 [email or web address] Information not available 10/01/2019 On Those Days That You Engage In Moderate To Strenuous Exercise, How Many Minutes, On Average, Do You Exercise? 30 [email or web address] Information not available 10/01/2019 Have There Been Any Changes To Your Family Or Social Situation? No Information no t available 02/24/2024 How Hard Is It For You To Pay For The Very Basics Like Food, Housing, Medical Care, And Heating? [id number] [email or web address] Information not available 10/01/2019 What Is The Fluoride Status Of Your Home? Unknown Information not available 02/24/2024 Live Alone Or With Others? With Others Information not available 01/23/2017 Last Menstrual Period? 09/26/2019 [email or web address] Information not available 10/01/2019 Do You Have A Medical Power Of Clock And Watch Hands Painter? No Information not available 02/24/2024 What Was The Date Of Your Most Recent Tobacco Screening? 02/14/2025 [email or web address] Information not available 02/14/2025 How Many Children Do You Have? 2 Information not available 01/23/2017 Performs Monthly Self-breast Exam? Yes Information no t available 01/23/2017 Do You Use Protection During Sex? No Information not available 01/23/2017 What Is Your Relationship Status? Information not available 01/23/2017 Seat Belts Used Routinely Yes Information not available 01/23/2017 Are You Sexually Active? No Information not available 01/23/2017 Do You Have Smoke And Carbon Monoxide Detectors In Your Home? Yes Information not available 02/24/2024 How Much Tobacco Do You Smoke? No Information not available 01/23/2017 General Stress Level High Information not available 05/27/2019 Do You Use Sunscreen Routinely? Yes Information not available 01/23/2017 Has Tobacco Cessation Counseling Been Provided? No Information not available 01/23/2017 How Many Years Have You Smoked Tobacco? 0 [email or web address] Information not available 06/19/2017 Do You Have Difficulty Walking Or Climbing Stairs? No Information not available 01/23/2017 Sex: Female Functional Status Question Answer Note LastModified by Organizat ion Details LastModified Time How many times per week do you consume alcohol? 1-2 times per week Information not available 02/24/2024 Do you or have you ever used smokeless tobacco? Never used smokeless tobacco [email or web address] Information not available 07/05/2020 Are you currently employed? Yes Information not available 05/27/2019 Do you have transportation difficulties? No Information not available 02/24/2024 Urinary incontinence assessment performed? No Information not available 01/23/2017 Are you able to care for yourself independently? Yes Information not available 02/24/2024 Do you have difficulty dressing, bathing, grooming, or toileting? No Information not available 01/23/2017 What is your exercise level? None Information not available 01/23/2017 Do you use any illicit or recreational drugs? No Information not available 02/24/2024 Do you or have you ever used any other forms of tobacco or nicotine? No Information not available 02/24/2024 What is your level of alcohol consumption? Occasional Information not available 02/24/2024 Are you able to walk independently without assistance or assistive devices? [email or web address] Information not available 01/23/2017 Do you have difficulty doing errands alone? No Information not available 01/23/2017 What is your occupation? [employer] Information not available 02/24/2024 Mental Status Question Answer Note LastModified by Organizat ion Details LastModified Time Do you feel stressed (tense, restless, nervous, or anxious, or unable to sleep at night)? [id number] [email or web address] Information not available 10/01/2019 Do you have difficulty concentrating, remembering or making decisions? No Information no t available 01/23/2017 Family History Relationship Description Onset Age of this Age Resolved Age Notes LastModified by Organization Details LastModified Time Mother Heart disease Not available 2016 09:27:17 Mother Myocardial infarction 65 65 fatal Not available 01/23 09:27:30 Medical History Condition Response Pancreatitis N Other N Atrial Fibrillation N congenital heart disease N Blood Diseases N Hyperthyroidism N Rheumatoid arthritis N Blood Transfusion N Erectile Dysfunction N amputation N Skin Lesions N Depression N Pneumonia N Incontinence N Murmur N Edema N Alzheimer's Disease N Migraine Headaches N Tobacco Abuse N Anxiety Disorder N Hemorrhoids N Obesity N Vision or Eye Problems N Restless Leg Syndrome N Arthritis Y Polyps N Infertility N Carpal Tunnel N Acid Reflux (GERD) N Cancer N Varicosities N Stroke N Tendonitis N Crohn's Disease N Hypercholesterolemia N Skin Cancer N Headaches N Fibromyalgia N Irritable Bowel Syndrome N Anal Fissure N Kidney Disease N Heart Problems N Hospitalizations N Gallstones N Kidney or Bladder Problems N Goiter N Acne N Eating Disorder N Mehean's Esophagus N Hypertriglyceridemia N Constipation N Embolism N Vitamin B12 Deficiency N Deviated Septum N AIDS/HIV N Myocardial Infarction N Asthma N Mitral Valve Disorders N Vertigo N Hepatitis N Thyroid Cancer N Neuropathy N History of DVT N Herniated Disc N Chicken Pox N [place] Disease N Thrombophilias N Breast Cancer N Hernia N Plantar Fasciitis N Lung Disease N Hypothyroidism N Defects or Inherited Disease N Breast Problem N Ovarian Cyst N Anesthesia Complications N Testosterone Deficiency N Interstitial Cystitis N Congenital Anomalies N Hypoglycemia N Blood clot N Vitamin D Deficiency N Cellulitis N Endometriosis N Fracture N Bladder or Kidney Problems N Schizophrenia N Panic Disorder N Concussion N Spina Bifida N Osteoarthritis N Parkinson's Disease N Disc Protrusion N STI N Esophagitis N Angina N Thyroid Problems N GI Problems N ADD/ADHD N Anemia N Multiple Sclerosis N Abnormal PAP N Lumbago N Mental Illness N Psychiatric Illness N Ovarian Cancer N Diabetes N Degenerative Disc Disease N Seizures/Epilepsy N Syncope N Insomnia N Hyperlipidemia N Eczema N Dementia N Attention Deficient Disorder N Abuse/Domestic Violence N Ulcerative colitis N Cerebrovascular Disease N Depression N Guillain-[place] N Sleep Apnea N Aneurysm N Heart Disease N Bronchitis N Suicidal Ideation N Pre-Eclampsia N Hypertension N Osteoporosis N Gynecological History Statement/Question Response Abnormal Pap N Date of Last Mammogram 03/27/2020 [place] Date of LMP 09/26/2019 On BCP's at Conception? N Post Menopausal Bleeding Y STIs/STDs N HPV Vaccine N Duration of Flow (days) 7 Current Control Method Sterilizati on Age at Menarche 15 Age at First Child 42 Last Annual Exam/Provider 07/05/2020 [facility] Date of Last Colonoscopy 11/12/2021 Frequency of Cycle (Q days) Sexually Active? N Menses Monthly N Date of Last Pap Smear 03/05/2018 Sexual Problems? N LMP Definite Hormone Replacement Therapy N Obstetrics History GPAL:G 4 P 2 0 2 2 Type Value Full Term 2 Spontaneous 2 Living 2 Total 4 Immunizations Vaccine Type Date Status Note Provider Bill morales and Address Organization Details Recorded Time zoster recombinant 1 completed Carolyn Mendosa null, [place] - [facility] 09/15/2020 14:23:21 zoster recombinant 1 completed Carolyn Mendosa null, [place] - [facility] 11/15/2020 14:33:09 Influenza, split virus, quadrivalent, preservative 7 completed Lily Connor null, [place] - [facility] 05/14/2017 14:42:58 Influenza, split virus, quadrivalent, preservative 8 completed [facility] [address], [place], [address], [place] [facility] 05/20/2018 08:32:25 Influenza, split virus, quadrivalent, preservative 0 completed Carolyn Deondre null, [place] - [facility] 07/05/2020 15:12:22 Tdap 8 completed Rand Steven null, [place] [facility] 10/09/2023 11:27:15 MMR 9 completed Carolyn Deond[place], [place] [facility] 07/05/2020 15:30:49 Hep B, adult 9 completed Carolyn Deond[place], [place] [facility] 07/05/2020 15:31:05 Hep B, adult 9 completed Carolyn Deond[place], [place] [facility] 07/05/2020 15:31:12 Hep B, adult 0 completed Carolyn Deond[place], [place] [facility] 07/05/2020 15:31:19 OPV, Unspecified 8 completed Rand Steven null, [place] [facility] 10/09/2023 11:27:15 OPV, Unspecified 9 completed Rand Steven [place], [place] [facility] 10/09/2023 11:27:15 OPV, Unspecified 8 completed Rand Steven [place], [place] [facility] 10/09/2023 11:27:15 measles 9 completed Rand Steven [place] [facility] 10/09/2023 11:27:15 rubella 0 completed Rand Steven [place] [facility] 10/09/2023 11:27:15 Td(adult) unspecified formulation 9 completed Rand Steven [place], [place] [facility] 10/09/2023 11:27:15 Td(adult) unspecified formulation 9 completed Rand Steven [place] [facility] 10/09/2023 11:27:15 DTP 8 completed Rand Steven [place] [facility] 10/09/2023 11:27:15 DTP 9 completed Rand Steven [place] [facility] 10/09/2023 11:27:15 DTP 8 completed Rand Steven [place] [facility] 10/09/2023 11:27:15 DTP 8 completed Rand Steven [place] [facility] 10/09/2023 11:27:15 DTP 8 completed Rand Steven [place] [facility] 10/09/2023 11:27:15 Vaccinia (smallpox, mpox), live 1 completed Rand Steven [place], [place] [facility] 10/09/2023 11:27:15 Influenza, split virus, quadrivalent, PF 6 completed Rand Steven null, [place] [facility] 10/09/2023 11:27:15 Past Encounters Encounter ID Performer Location Encounter Start Date Encounter Closed Date Diagnosis/Indication Diagnosis SNOMED-CT Code Diagnosis ICD10 Code Diagnosis IMO Codes Diagnosis Note [id number] Yonis Leonard APRN [address] [address] 02/14/2025 08:16:52 02/14/2025 09:01:45 Pain of knee region 3778740745 M25.561 G89.29 [id number] chronic pain but now acute increase in pain Soft tissue swelling [id number] neck Health Concerns Section Related Observation LastModified by Organization Detai ls LastModified Time None Recorded Concern Status LastModified by Organization Details LastModified Time None Recorded Payers Encounter Date Sequence Insurance Name Policy Number Policy Flores Covered Member ID Flores Member ID Guarantor Name 02/14/2025 1 [employer] [id number] Evan Mtz [id number] Mtz Notes Date Note Type Note Provider Name and Address Organization Details Recorded Time 02/14/2025 text/html 59 yr old female presents for right knee pain- chronic pain and crepitus, pt states now anytime she goes up steps the pain is 8-10. left neck swelling at the base of neck. pt states she does have soreness and a dull pain to entire neck. no problems swallowing. Yonis Leonard, [employer] [address], [place], [address], [place] [facility] 02/14/2025 09:29:05 OBGyn Episode No OBEpisode recorded.
--- OUTSIDE RECORDS SUMMARY | 2025-04-15 11:19 | XMS_ITS | Data Portability ---
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 - Patient was advised of cbft-rfb-wacwhaj regimen such as probiotics daily, twice daily cranberry supplementation, and vitamin-C. - Patient is aware of the possible role of daily antibiotics with recurrent infections. - Patient was educated and reports understanding the need for a urine culture if symptomatic. I outlined the advantages of catheterized specimens. - We reviewed the role of adequate estrogenization of vaginal tissue. Vaginal estrogen creams or rings may also reduce the risk of clinical UTI relative to placebo or no treatment in postmenopausal women or Depo users. [email or web address] Not available 01/23/2021 11:30:51 Plan of Treatment Reminders Order Date Submit Date Provider Last Modified By Organization Details Last Modified Time Details Appointments None recorded. Lab rapid strep group A, throat 2023 024 [facility], [address] [place] [address], [place], [address], 4 13:23:22 SARS CoV 2 IgG Ab, QL IA, serum or plasma 2020 021 [facility], [address], [place], [place], [address], 1 13:09:50 SARS CoV 2 IgM Ab, QL IA, serum or plasma 2020 021 [facility], [address], [place], [place], [address], 1 13:09:51 SARS CoV 2 IgG Ab, QL IA, serum or plasma 2020 021 [facility], [address], [place], [place], [address], 1 15:11:42 SARS CoV 2 IgM Ab, QL IA, serum or plasma 2020 021 [facility], [address], [place], [place], [address], 1 15:11:41 urinalysis, dipstick 2020 021 [facility] 3 [facility], [address] [place] [address] [place], [address], 1 11:32:40 Referral orthopedic surgeon referral - xrays and CT ordered with [facility] 2024 CARL Mcneil MD, [address] [place] [address] [place], [address], 5 13:02:22 Procedures None recorded. Surgeries None recorded. Imaging XR, knee, 3 view 2024 025 [facility], [address] [place] [address] [place], [address], 5 04:12:49 XR, chest, 2 view 2024 025 [facility], [address] [place] [address] [place], [address], 5 04:12:49 Medication Orders duloxetine 20 mg capsule,del ayed release 2023 024 [facility], [address] [place], [address], 4 11:15:19 neomycin-po lymyxin-hyd rocort 3.5 mg-10,000 unit/mL-1 % ear drops,susp 2023 025 [facility], [address] [place], [address], 5 08:28:45 Zithromax Z-Garrison 250 mg tablet 2023 024 [facility][id number], [address], [id number], 4 10:02:36 prednisone 20 mg tablet 2023 024 [facility] #[id number], [address], [id number], 4 10:02:37 Patient TargetsNo targets recorded. Patient Instructions Encounter Date Encounter Id Patient Instructions Last Modified By Organization Details Last Modified Time 10/09/2023 [id number] body mass index: care instructions efryman Not available 10/09/2023 13:23:20 learning about healthy weight efryman Not available 10/09/2023 13:23:20 Reason for Referral Orthopedic Surgeon Referral for Pain of knee region xrays and CT ordered with [facility] Referring Physician: Yonis Leonard, Family Medicine, Encounter Date: 02/14/2025 Results Created Date Observation Date Name Description Value Unit Range Abnormal Flag Note LastModifiedBy Organization Detail LastModifiedTime 03/23/20 21 03/23/2021 urina lysis , dipst ick Leukocytes Negati ve Not Available [address] [place], [address], 03/23/2021 15:44:52 03/23/2003/23/2021 urina lysis , dipst ick Nitrite negati ve Not Available [address] , [place], [address], 03/23/2021 15:44:52 03/23/2003/23/2021 urina lysis , dipst ick Urobilinogen .2 Not Available [address] , [place], [address], 03/23/2021 15:44:52 03/23/2003/23/2021 urina lysis , dipst ick Protein Negati ve Not Available [address] , [place], [address], 03/23/2021 15:44:52 03/23/2003/23/2021 urina lysis , dipst ick pH 5.5 Not Available [address] , [place], [address], 03/23/2021 15:44:52 03/23/2003/23/2021 urina lysis , dipst ick Blood Negati ve Not Available [address] , [place], [address], 03/23/2021 15:44:52 03/23/2003/23/2021 urina lysis , dipst ick Specific [place] 1.030 Not Available [address] , [place], [address], 03/23/2021 15:44:52 03/23/20 21 03/23/2021 urina lysis , dipst ick Ketone Negati ve Not Available [address] , [place], [address], 03/23/2021 15:44:52 03/23/20 21 03/23/2021 urina lysis , dipst ick Bilirubin Negati ve Not Available [address] , [place], [address], 03/23/2021 15:44:52 03/23/20 21 03/23/2021 urina lysis , dipst ick Glucose Negati ve Not Available [address] , [place], [address], 03/23/2021 15:44:52 03/23/20 21 03/23/2021 urina lysis , dipst ick Appearance Clear Not Available [address] , [place], [address], 03/23/2021 15:44:52 03/23/20 21 03/23/2021 urina lysis , dipst ick Color Dark Yellow Not Available [address] , [place], [address], 03/23/2021 15:44:52 01/24/20 21 01/24/2021 SARS- COV-2 ANTIB ERIC, IGM sars-cov-2 antibody, IgM Positi ve negati ve normal Resul ts sugge st recen t or prior infec tion with SARS- CoV-2 . Corre latio n with epide miolo gic risk facto rs and other clini clarissa and labor atory findi ngs is recom ayan d. Serol ogic resul ts shoul d not be used as the sole basis to diagn ose or exclu de recen t SARS- CoV-2 infec tion. False posit antonia resul ts infre quent ly occur due to prior infec tion with other human Coron aviru ses. This assay detec ts antib odies again st SARS- CoV-2 spike prote in inclu ding the unit receptionist tor nasreen ng domai n (RBD) . Not Available [facility] ([facility]) [address] [facility], [place], [address], 01/24/2021 15:11:41 01/24/20 21 01/24/2021 SARS- COV-2 ANTIB ERIC, IGG sars-cov-2 antibody, IgG Positi ve negati ve normal Resul ts sugge st recen t or prior infec tion with SARS- CoV-2 . Corre latio n with epide miolo gic risk facto rs and other clini clarissa and labor atory findi ngs is recom ayan d. Serol ogic resul ts shoul d not be used as the sole basis to diagn ose or exclu de recen t SARS- CoV-2 infec tion. False posit antonia resul ts infre quent ly occur due to prior infec tion with other human Coron aviru ses. This assay was perfo rmed using the DiaSo rin Liais on(R) SARS- CoV-2 S1/S2 IgG assay . This assay detec ts antib odies again st SARS- CoV-2 spike prote in inclu ding the unit receptionist tor nasreen ng domai n (RBD) . Not Available [facility] ([facility]) [address] [facility], [place], [address], 01/24/2021 15:11:42 01/24/20 21 01/23/2021 urina lysis , dipst ick Leukocytes Negati ve Not Available [address] , [place], [address], 01/15/2021 10:51:17 01/24/20 21 01/23/2021 urina lysis , dipst ick Nitrite negati ve Not Available [address] , [place], [address], 01/15/2021 10:51:17 01/24/20 21 01/23/2021 urina lysis , dipst ick Urobilinogen .2 Not Available [address] , [place], [address], 01/15/2021 10:51:17 01/24/20 21 01/23/2021 urina lysis , dipst ick Protein Negati ve Not Available [address] , [place], [address], 01/15/2021 10:51:17 01/24/20 21 01/23/2021 urina lysis , dipst ick pH 6.0 Not Available [address] , [place], [address], 01/15/2021 10:51:17 01/24/20 21 01/23/2021 urina lysis , dipst ick Blood Negati ve Not Available [address] , [place], [address], 01/15/2021 10:51:17 01/24/20 21 01/23/2021 urina lysis , dipst ick Specific [place] 1.015 Not Available [address] , [place], [address], 01/15/2021 10:51:17 01/24/20 21 01/23/2021 urina lysis , dipst ick Ketone Negati ve Not Available [address] , [place], [address], 01/15/2021 10:51:17 01/24/20 21 01/23/2021 urina lysis , dipst ick Bilirubin Negati ve Not Available [address] [place], [address], 01/15/2021 10:51:17 01/24/20 21 01/23/2021 urina lysis , dipst ick Glucose Negati ve Not Available [address] , [place], [address], 01/15/2021 10:51:17 01/24/20 21 01/23/2021 urina lysis , dipst ick Appearance Clear Not Available [address] , [place], [address], 01/15/2021 10:51:17 01/24/20 21 01/23/2021 urina lysis , dipst ick Color Yellow Not Available [address] , [place], [address], 01/15/2021 10:51:17 05/10/20 21 05/11/2021 SARS- COV-2 ANTIB ERIC, IGG sars-cov-2 semi-quant IgG Ab 70.9 AU/mL neg <13.0 Not Available [facility] ([facility]) [address] [facility], [place], [address], 05/11/2021 13:09:50 05/10/20 21 05/11/2021 SARS- COV-2 ANTIB ERIC, IGG sars-cov-2 spike Ab interp Positi ve Antib odies again st the SARS- CoV-2 spike prote in, inclu ding the unit receptionist tor nasreen ng domai n (RBD) were detec addis. It is not yet known what level of antib eric to SARS- CoV-2 spike prote in corre lates to immun ity again st devel oping sympt omati c SARS- CoV-2 disea se. This assay was perfo rmed using DiaSo rin Liais on(R) SARS- CoV-2 Trime concetta S IgG assay . Not Available [facility] ([facility]) [address] [facility], [place], [address], 05/11/2021 13:09:50 05/10/20 21 05/11/2021 SARS- COV-2 ANTIB ERIC, IGM sars-cov-2 antibody, IgM Positi ve negati ve Resul ts sugge st recen t or prior infec tion with SARS- CoV-2 . Corre latio n with epide miolo gic risk facto rs and other clini clarissa and labor atory findi ngs is recom ayan d. Serol ogic resul ts shoul d not be used as the sole basis to diagn ose or exclu de recen t SARS- CoV-2 infec tion. False posit antonia resul ts infre quent ly occur due to prior infec tion with other human Coron aviru ses. This assay detec ts antib odies again st SARS- CoV-2 spike prote in inclu ding the unit receptionist tor nasreen jackelyn riley n (RBD) . Not Available [facility] ([facility]) [address] [facility], [place], [address], 05/11/2021 13:09:51 10/09/19 24 10/09/2023 rapid strep group A, throa t Strep negati ve Not Available [address], [address], 10/09/2023 12:02:43 10/09/19 24 10/09/2023 rapid strep group A, throa t Culture No Not Available [address], [address], 10/09/2023 12:02:43 03/04/20 24 03/04/2024 pap test, thinp rep, cervi clarissa normal Not Available Not Availa ble 03/04/2024 10:57:37 02/17/20 25 02/17/2025 BASIC METAB OLIC PANEL (8) glucose 92 mg/dL 70-99 normal Not Available [facility] ([facility]) [address] [facility], [place], [address], 02/17/2025 05:06:35 02/17/20 25 02/17/2025 BASIC METAB OLIC PANEL (8) BUN 17 mg/dL 6-24 normal Not Available [facility] ([facility]) [address] [facility] [place], [address], 02/17/2025 05:06:35 02/17/20 25 02/17/2025 BASIC METAB OLIC PANEL (8) creatinine 0.88 mg/dL 0.57-1 .00 normal Not Available [facility] ([facility]) [address] [facility] [place], [address], 02/17/2025 05:06:35 02/17/20 25 02/17/2025 BASIC METAB OLIC PANEL (8) eGFR 77 mL/mi n/1.7 3 >59 normal Not Available [facility] ([facility]) [address] [facility] [place], [address], 02/17/2025 05:06:35 02/17/20 25 02/17/2025 BASIC METAB OLIC PANEL (8) BUN/creatini ne ratio 19 9-23 normal Not Available [facility] ([facility]) [address] [facility] [place], [address], 02/17/2025 05:06:35 02/17/20 25 02/17/2025 BASIC METAB OLIC PANEL (8) sodium 143 mmol/ L 134-14 4 normal Not Available [facility] ([facility]) [address] [facility] [place], [address], 02/17/2025 05:06:35 02/17/20 25 02/17/2025 BASIC METAB OLIC PANEL (8) potassium 4.8 mmol/ L 3.5-5. 2 normal Not Available [facility] ([facility]) [address] [facility] [place], [address], 02/17/2025 05:06:35 02/17/20 25 02/17/2025 BASIC METAB OLIC PANEL (8) chloride 105 mmol/ L 96-106 normal Not Available [facility] ([facility]) [address] [facility], [place], [address], 02/17/2025 05:06:35 02/17/20 25 02/17/2025 BASIC METAB OLIC PANEL (8) carbon dioxide, total 19 mmol/ L 20-29 below low normal Not Available [facility] ([facility]) [address] [facility], [place], [address], 02/17/2025 05:06:35 02/17/20 25 02/17/2025 BASIC METAB OLIC PANEL (8) calcium 9.6 mg/dL 8.7-10 .2 normal Not Available [facility] ([facility]) [address] [facility], [place], [address], 02/17/2025 05:06:35 03/04/20 24 05/08/2023 MAMMO , scree kelly, tomos ynthe sis, bilat eral, w/ CAD No observ ation record ed. efryman Not Available 2023 12:21:40 02/24/[address], neck, soft tissu e, w/ contr ast No observ ation record ed. [address], [place], [address], 02/24/2025 09:55:50 03/22/20 25 US, neck, soft tissu e No observ ation record ed. [address] , [place], [address], 03/22/2025 16:31:30 Result Notes None recorded. Problems Name Problem SNOMED Code Status Onset Date Resolution Date Notes Provider Name and Address Organization Details Recorded Time Psoriasis 5114480 Active 2016 [place] Sheikh - [facility] 7 09:23:01 Arthritis 1593226 Active 2016 [place] Sheikh - [facility] 7 09:23:09 Chronic pelvic pain of female 326759349 Active 2016 MORENA Graves - [facility] 7 09:47:22 Steriliza tion requested [id number] Completed 201603/05/2018 [facility] [address], [place], [address], [place] - [facility] 8 08:27:24 Menopausa l syndrome 810861183 Active 2017 MORENA Graves - [facility] 8 09:04:49 Pain in pelvis 60921243 Completed 201705/20/2018 [facility] [address], [place], [place], [address], [place] - [facility] 8 08:29:05 Anxiety 31518052 Active 2018 MORENA Graves - [facility] 9 09:06:38 Simple endometri al hyperplas ia 657142317 Active 2019 Cammie Quintero APRN [address], [place], [address], [place] - [facility] 0 15:50:50 Exposure to SARS-CoV- 2 Active 2020 Carolyn patel, [place] - [facility] 1 12:30:37 Exposure to SARS-CoV- 2 Active 2020 Claudia Edmond MD [address], [place], [address], [place] [facility] 1 12:46:06 Postmenop ausal bleeding 33562797 Active 2020 Claudia Edmond MD [address], [place], [address], [place] - [facility] 1 12:52:28 Atrophic vaginitis 69310569 Active 2020 Claudia Edmond MD [address], [place], [address], [place] - [facility] 1 12:52:29 Recurrent urinary tract infection 872197862 Active 2020 Meghan Lee APRN [address], [place], [address], [place] - [facility] 1 14:17:12 Problem Notes None recorded. Procedures Surgical History Date Name Laterality Status Provider Name and Address Organization Details Recorded Time 022 Date of Last Colonoscopy completed Dianne Toños [place] - [facility] 03/04/2024 13:56:28 021 Sonohysterography completed Claudia Edmond MD [address], [place], [address], [place] - [facility] 09/26/2020 22:05:49 020 Date of Last Mammogram completed Carolyn Deondre [place] - [facility] 04/03/2020 14:14:29 020 Hysteroscopy completed Claudia Edmond MD [address], [place], [address], [place] - [facility] 09/01/2020 12:37:27 020 Endometrial Biopsy completed Cammie Quintero APRN [address], [place], [address], [place] - [facility] 10/03/2019 19:56:44 020 Endometrial Biopsy completed Carolynchel Mendosa [place] - [facility] 10/13/2019 14:01:58 019 Cystourethroscopy completed Claudia Edmond MD [address], [place], [address], [place] [facility] 09/26/2020 13:29:20 018 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 [address], [place], [address], [place] - [facility] 05/05/2018 10:33:[address] [facility] [address], [place], [address], [place] [facility] 08/05/2017 14:26:19 018 Dilation [address] curettage completed [facility] [address], [place], [address], [place] [facility] 08/05/2017 14:26:[address] [facility] [address], [place], [address], [place] - [facility] 08/18/2017 14:49:20 011 delivery completed Yumi Dominguez [place] - [facility] 01/23/2017 09:30:29 008 delivery completed Yumi Dominguez [place] - [facility] 01/23/2017 09:30:19 005 Cholecystectomy, laparoscopic completed Yumi Dominguez [place] - [facility] 01/23/2017 09:30:03 004 Eye Surgery completed Yumi BERG - [facility] 01/23/2017 09:30:47 Ankle arthroscopy/surgery completed Carolyn [place] - [facility] 07/05/2020 15:14:56 Pinch graft up to 2 cm diam completed Yumi Dominguez [place] - [facility] 01/23/2017 09:29:01 Imaging Results None recorded. Procedure Notes None recorded. Medical Equipment None Reported. Allergies Allergen ID Allergen Name Allergen Category Reaction Reaction Severity Criticality Documentation Date Start Date Code Code System Note Provider Name and Address Organization Details Recorded Time 683977 Levaquin medicatio n Not available Not available Not available 09/14/2020 79441 2 RxNorm achil le tendo n ruptu re Mary [place] null, [place] - [facility] 1 13:03:03 39851 Substance with sulfonami de structure and antibacte rial mechanism of action (substanc e) medicatio n rash Not available Not available 03/15/20162007 42055 8003 SNOMED Lily Connor null, [place] - [facility] 7 14:36:29 99123 acetamino phen / hydrocodo ne medicatio n Not available Not available Not available 05/14/2017 51316 2 RxNorm Brandee Angelika null, [place] - [facility] 1 11:20:44 43325 acetamino phen / hydrocodo ne medicatio n Not available Not available Not available 05/14/201724734 2 RxNorm Brandee Carney null, [place] - [facility] 1 11:20:47 Medications Name Sig Start Date Stop Date Status Note LastModified by Organization Details LastModified Time estradiol /estriol( 20/80) 0.625mg/0 .1ml APPLY 0.1ml vaginall y one [...] Disconti nued on: 02/22/20 14 11:30AM; User: [email or web address] Not Available Not Available Not Available Vitamin tablet take 1 tablet by oral route once daily for 30 days 09/01 completed Vitamin Oral Tablet;R ecorded Status: Recorded on: 02/02/20 10 2:04PM;D iscontin ued Status: Disconti nued on: 09/02/19 12 2:48PM;U ser: [email or web address]; Est. Completi on: 01/28/20 11;Indic ation: Pregnanc [...] nued on: 02/22/20 14 11:31AM; User: Suzette st. Completi on: 12/24/19 13 Not Available Not Available [...] Disconti nued on: 03/06/20 15 1:09PM;U ser: grant Not Available Not Available Not Available Clomid 50 mg tablet take 2 tablets (100 mg) days 3-7 08/02 completed Clomid 50 mg oral tablet;R ecorded Status: Recorded on: 07/13/19 10 10:57AM; Disconti nued Status: Disconti nued on: 08/02/19 10 1:57PM;U ser: [email or web address];Cheri t. Completi on: 07/18/19 10;Print ed: 07/13/19 [...] Disconti nued on: 09/02/19 12 2:48PM;U ser: grant Not Available Not Available Not Available Premarin [...] Disconti nued on: 11/30/19 09 4:21PM;U ser: [email or web address] Not Available Not Available Not Available glucosami ne-chondr oit-C-Mn- boron 750 mg-600 mg-30 mg-1mg-1. 5mg tablet 02/01 completed glucosam -chondr- vit C-Mn-bor on 750-600- 30-1 mg oral tablet;R ecorded Status: Recorded on: 04/12/20 08 2:32PM;D iscontin ued Status: Disconti nued on: 02/02/20 10 1:24PM;U ser: [email or web address] Not Available Not Available Not Available azelastin [...] Available Not Available Not Available Fluarix Quad 7480-5907 (PF) 60 mcg (15 mcg x 4)/0.5 mL IM syringe 05/14 completed Not Available Not Available Not Available cannabidi ol (CBD) oral oil Take by oral route. 10/08 completed Not Available Not Available Not Available Vitals Date Recorded Body weight Body temperature Heart rate Oxygen saturation Oxygen saturation in Arterial blood by Pulse oximetry Respiratory rate Pain severity - 0-10 verbal numeric rating [Score] - Reported Body mass index (BMI) Body height Systolic And Diastolic Provider Name and Address Organization Details Last Updated DateTime 4 16438.3 7 g 97.6 [degF] 88 /min 97 % 97 % 18 /min 0 29.4 kg/m2 170.18 cm 110/62 mm[Hg] Rand Harris [place] - [facility] 4 11:32:35 Date Recorded Body height Body mass index (BMI) Body weight Respiratory rate Pain severity - 0-10 verbal numeric rating [Score] - Reported Heart rate Oxygen saturation Oxygen saturation in Arterial blood by Pulse oximetry Systolic And Diastolic Provider Name and Address Organization Details Last Updated DateTime 1 170.18 cm 27.3 kg/m2 89159.0 7 g 14 /min 0 84 /min 98 % 98 % 120/80 mm[Hg] Brandee Carney [place] - [facility] 1 11:22:35 Date Recorded Body height Body mass index (BMI) Body weight Pain severity - 0-10 verbal numeric rating [Score] - Reported Heart rate Oxygen saturation Oxygen saturation in Arterial blood by Pulse oximetry Respiratory rate Body temperature Systolic And Diastolic Provider Name and Address Organization Details Last Updated DateTime 5 170.18 cm 30.2 kg/m2 91362.3 3 g 5 83 /min 97 % 97 % 18 /min 97.9 [degF] 122/74 mm[Hg] Rand Harris [place] - [facility] 5 08:27:45 Date Recorded Body height Respiratory rate Body mass index (BMI) Body weight Body temperature Heart rate Oxygen saturation Oxygen saturation in Arterial blood by Pulse oximetry Systolic And Diastolic Provider Name and Address Organization Details Last Updated DateTime 4 170.18 cm 18 /min 29.8 kg/m2 61333.9 5 g 97.8 [degF] 96 /min 97 % 97 % 138/82 mm[Hg] Dianne Lundbergmarcella [place] - [facility] 4 10:18:39 Date Recorded Body height Provider Name an d Address Organization Details Last Updated DateTime 05/10/2021 170.18 cm Larisa Shelton, APR N [address], [place], [address], [place] - [facility] 05/10/2021 08:51:39 Social History Question Answer Notes LastModified by Organizat ion Details LastModified Time Tobacco Smoking Status Never Smoker Yumi Dominguez [facility], [place] - [facility] 01/23/2017 09:27:40 Do You [...] Or Recreational Drugs Have You Used? None [email or web address] Information not available 05/14/2017 What Is The Highest Grade Or Level Of School You Have Completed Or The Highest Degree You Have Received? [id number] [email or web address] Information not available 10/01/2019 How Many Days Of Moderate To Strenuous Exercise, Like A Brisk Walk, Did You Do In The Last 7 Days? 3 [email or web address] Information not available 10/01/2019 On Those Days That You Engage In Moderate To Strenuous Exercise, How Many Minutes, On Average, Do You Exercise? 30 [email or web address] Information not available 10/01/2019 Have There Been Any Changes To Your Family Or Social Situation? No Information no t available 02/24/2024 How Hard Is It For You To Pay For The Very Basics Like Food, Housing, Medical Care, And Heating? [id number] [email or web address] Information not available 10/01/2019 What Is The Fluoride Status Of Your Home? Unknown Information not available 02/24/2024 Live Alone Or With Others? With Others Information not available 01/23/2017 Last Menstrual Period? 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 No Information not available 02/24/2024 What Was [...] Many Years Have You Smoked Tobacco? 0 [email or web address] Information not available 06/19/2017 Do You Have [...] not available 01/23/2017 What is your occupation? [employer] Information not available 02/24/2024 Mental Status Question Answer Note LastModified by Organizat ion Details LastModified Time Do you feel stressed (tense, restless, nervous, or anxious, or unable to sleep at night)? [id number] [email or web address] Information not available 10/01/2019 Do you have [...] Goiter N Acne N Eating Disorder N Meehan's Esophagus N Hypertriglyceridemia N Constipation N Embolism N Vitamin B12 Deficiency N Deviated Septum N AIDS/HIV N Myocardial Infarction N Asthma N Mitral Valve Disorders N Vertigo N Hepatitis N Thyroid Cancer N Neuropathy N History of DVT N Herniated Disc N Chicken Pox N Von [place] Disease N Thrombophilias N Breast Cancer N Hernia N Plantar Fasciitis N Hypothyroidism N Lung Disease N Defects or Inherited Disease N Breast Problem N Ovarian Cyst N Anesthesia Complications N Testosterone Deficiency N Interstitial Cystitis N Congenital Anomalies N Hypoglycemia N Blood clot N Vitamin D Deficiency N Cellulitis N Endometriosis N Bladder or Kidney Problems N Fracture N Schizophrenia N Panic Disorder N Concussion N Spina Bifida N Osteoarthritis N Parkinson's Disease N Disc Protrusion N STI N Esophagitis N Angina N Thyroid Problems N GI Problems N ADD/ADHD N Anemia N Multiple Sclerosis N Abnormal PAP N Lumbago N Mental Illness N Psychiatric Illness N Ovarian Cancer N Diabetes N Degenerative Disc Disease N Seizures/Epilepsy N Syncope N Hyperlipidemia N Insomnia N Eczema N Abuse/Domestic Violence N Attention Deficient Disorder N Dementia N Ulcerative colitis N Cerebrovascular Disease N Depression N Guillain-[place] N Sleep Apnea N Aneurysm N Bronchitis N Heart Disease N Suicidal Ideation N Pre-Eclampsia N Hypertension [...] e and Address Organization Details Recorded Time zoster recombinant 1 completed Carolyn Deondre null, [place] - [facility] 09/15/2020 14:23:21 zoster recombinant 1 completed Carolyn Deond[place] null, [place] - [facility] 11/15/2020 14:33:09 Influenza, split virus, quadrivalent, preservative 7 completed Lily Connor null, [place] - [facility] 05/14/2017 14:42:58 Influenza, split virus, quadrivalent, preservative 8 completed [facility] [address], [place], [address] [place] - [facility] 05/20/2018 08:32:25 Influenza, split virus, quadrivalent, preservative 0 completed Carolyn Deond[place], [place] - [facility] 07/05/2020 15:12:22 Tdap 8 completed Randalex Harris null, [place] - [facility] 10/09/2023 11:27:15 MMR 9 completed Carolyn Deond[place] [facility] 07/05/2020 15:30:49 Hep B, adult 9 completed Carolyn De[place] [facility] 07/05/2020 15:31:05 Hep B, adult 9 completed [place]yn De[place] [facility] 07/05/2020 15:31:12 Hep B, adult 0 completed Carolyn De[place] [facility] 07/05/2020 15:31:19 OPV, Unspecified 8 completed [place] - [facility] 10/09/2023 11:27:15 OPV, Unspecified 9 completed [place] - [facility] 10/09/2023 11:27:15 OPV, Unspecified 8 completed [place] - [facility] 10/09/2023 11:27:15 measles 9 completed Rand Steven null, [place] - [facility] 10/09/2023 11:27:15 rubella 0 completed [place], [place] - [facility] 10/09/2023 11:27:15 Td(adult) unspecified formulation 9 completed [place], [place] - [facility] 10/09/2023 11:27:15 Td(adult) unspecified formulation 9 completed [place] [facility] 10/09/2023 11:27:15 DTP 8 completed [place] [facility] 10/09/2023 11:27:15 DTP 9 completed [place] [facility] 10/09/2023 11:27:15 DTP 8 completed [place] [facility] 10/09/2023 11:27:15 DTP 8 completed [place] [facility] 10/09/2023 11:27:15 DTP 8 completed [place] [facility] 10/09/2023 11:27:15 Vaccinia (smallpox, mpox), live 1 completed [place], [place] - [facility] 10/09/2023 11:27:15 Influenza, split virus, quadrivalent, PF 6 completed [place] Steven null, [place] - [facility] 10/09/2023 11:27:15 Past Encounters Encounter ID Performer Location Encounter Start Date Encounter Closed Date Diagnosis/Indication Diagnosis SNOMED-CT Code Diagnosis ICD10 Code Diagnosis IMO Codes Diagnosis Note [id number] [facility] [address] [place] [address] 09/09/2006 00:00:00 [id number] [facility] [address] [address] 09/18/2011 00:00:00 [id number] [facility] [address] [place] [address] 02/21/2014 00:00:00 [id number] [facility] [address] [place] [address] 03/06/2015 00:00:00 [id number] [facility] [address] [place] [address] [address] 01/08/2016 00:00:00 [id number] [facility] [address] [place] [address] 01/17/2009 00:00:00 [id number] [facility] [address] [place] [address] 02/15/2009 00:00:00 [id number] [facility] [address] [place] [address] 03/13/2009 00:00:00 [id number] [facility] [address] [address] 04/10/2009 00:00:00 [id number] [facility] [address] [place] [address] 08/02/2009 00:00:00 [id number] [facility] [address] [place] [address] 02/01/2010 00:00:00 [id number] [facility] [address] [place] [address] 04/04/2010 00:00:00 [id number] [facility] [address] [place] [address] 11/06/2010 00:00:00 [id number] [facility] [address] [place] [address] 09/02/2011 00:00:00 [id number] [facility] [address] [place] [address] 11/24/2006 00:00:00 [id number] [facility] [address] [place] [address] 12/22/2006 00:00:00 [id number] [facility] [address] [place] [address] 04/12/2008 00:00:00 [id number] [facility] [address] [place] [address] 11/29/2008 00:00:00 [id number] MD Vic Cerda [facility] [address] [place] [address] [place] [id number] 01/23/2017 09:03:46 01/23/2017 09:54:18 Right lower quadrant pain 878043065 R10.31 Abnormal u terine bleeding 3938428119 9100 N93.9 [id number] MD Vic Cerda [facility] [address] [place] [address] [place] [id number] 02/03/2017 12:51:27 02/03/2017 13:40:44 Right lower quadrant pain 436492543 R10.31 Abnormal u terine bleeding 5386297969 9100 N93.9 [id number] MD Vic Cornell [facility] [address] [place] [address] [place] [id number] 02/26/2017 08:53:57 02/26/2017 10:36:47 Chronic pelvic pain of female 711954384 R10.2 See Ms. Kuo re hysterosco py, D&C, laparoscop y, RENETTA, bilateral salpingect jayleen or BTO Body mass index 25-29 - overweight 174565545 Z68.26 Sterilizat ion requested 162612814 Z30.09 [id number] MD Vic Cornell [facility] [address] [place] [address] [place] [id number] 05/14/2017 14:25:14 05/14/2017 15:32:01 Routine gynecologic examination done 6526913375 9101 Z01.419 Depression screening 171 715235 Z13.89 Diet education 81544750 Z71.3 Counseling 258985486 Z71 .9 Exercise counsellin g. Patient encouraged to exercise 30 minutes 5 days a week. Examinatio n of blood pressure 018494226 Z01.30 Body mass index 25-29 - overweight 492353254 Z68.26 Mixed anxi ety and depressive disorder 898078788 F41.8 [id number] MD Vic Cornell [facility] [address] [place] [address] [place] [id number] 05/20/2018 08:25:43 05/20/2018 08:59:27 Routine gynecologic examination done 2017249980 9101 Z01.419 Depression screening 171 851577 Z13.89 Diet education 29260651 Z71.3 Counseling 476901317 Z71 .82 Exercise counselnilay [place]. Patient encouraged to exercise 30 minutes 5 days a week. Examinatio n of blood pressure 105284972 Z01.30 Menopausal syndrome 1237 72902 N95.9 Chronic pe lvic pain of female 872916747 R10.2 Screening mammography 24 087390 Z12.31 Body mass index 25-29 - overweight 193823697 Z68.25 Anxiety 21192452 F41.9 [id number] MD Vic Cornell [facility] [address] [place] [address] [place] [id number] 06/19/2017 09:56:06 06/19/2017 10:19:17 Pre-surgery evaluation 229275739 Z01.818 See Jacquelyn for final instructio ns and labs Family inle nning education 089463385 Z30.02 Sterilizat ion requested 498456026 Z30.09 Chronic pe lvic pain of female 929802583 R10.2 See Ms. Kuo re hysterosco py, D&C, laparoscop y, RENETTA, bilateral salpingect jayleen or BTO [id number] MD Vic Cornell [facility] [address] [place] [address] [place] [id number] 08/07/2017 10:34:29 08/07/2017 11:22:44 Postoperative care 664868369 Z48.89 [id number] MD Vic Cornell [facility] [address] [place] [address] [place] [id number] 01/26/2018 11:22:56 01/26/2018 12:51:05 Perimenopausal state 7738653935 89782 Z78.0 [id number] MD Vic Cornell [facility] [address] [place] [address] [place] [id number] 03/05/2018 08:26:21 03/05/2018 09:05:27 Body mass index 20-24 - normal 146222239 Z68.24 Screening for malignant neoplasm of cervix 854333647 Z12.4 Pain in pelvis 54942995 R10.2 Menopausal syndrome 1237 84517 N95.9 Chronic pe lvic pain of female 792538130 R10.2 Arthritis 2428855 L40.52 Psoriasis 1100552 L40.9 [id number] MD Vic Cornell [employer] [facility] [address] [place] [address] [place] [id number] 05/21/2018 09:57:17 05/21/2018 11:03:25 Uterine leiomyoma 27927788 D25.9 [id number] MD Vic Cornell [facility] [address] [place] [address] [place] [id number] 05/27/2019 08:18:45 05/27/2019 09:17:02 Routine gynecologic examination done 8676176255 9101 Z01.419 Depression screening 171 508743 Z13.89 Diet education 09710665 Z71.3 Counseling 544873095 Z71 .82 Exercise counsellin g. Patient encouraged to exercise 30 minutes 5 days a week. Examinatio n of blood pressure 198567405 Z01.30 Vaccine de clined by patient 4840771806 02 Z28.21 Body mass index 25-29 - overweight 273347783 Z68.27 Arthritis 4740690 L40.52 Menopausal syndrome 1237 81909 N95.9 Anxiety 11048683 F41.9 [id number] LACEY Fabian [facility] [address] [place] [address] [place] [id number] 10/01/2019 08:52:48 10/01/2019 11:11:09 Postmenopausal bleeding 55026656 N95.0 History of female sterilization 918907032 Z92.0 bilateral salpingect jayleen Body mass index 25-29 - overweight 246602266 Z68.27 [id number] MD Vic Andrew [facility] [address] [place] [address] [place] [id number] 10/08/2019 14:57:30 10/08/2019 15:46:10 Simple endometrial hyperplasia 264416465 N85.01 Diagnosis reviewed. Need for further endometria l evaluation to exclude any more advanced hyperplasi a or other focal lesions Postmenopa usal bleeding 89143808 N95.0 Perimenopa usal versus early postmenopa usal bleeding. Gonadotrop ins actually decreased over the last year. Still needs evaluation with hyperplasi a on global biopsy. Advise proceeding with the monthly Provera as prescribed per Cammie Endometrium thickened 44 1860587 R93.89 Pre-surger y evaluation 082683620 Z01.818 Preoperati ve counseling completed as below. Will hold on actually getting labs until we are sure of surgical date. Reviewed will also need COVID-19 testing, unsure whether this will be through here or hospital Viral screening 62407844 4 Z11.59 [id number] MD Vic Andrew [facility] [address] [facility] [address] 07/05/2020 14:57:22 07/05/2020 16:48:14 Gynecologic examination 83330102 Z01.419 Cervical cancer screening not due this year, see HPI Depression screening 171 651789 Z13.89 Mild symptoms on screening Hypertensi on screening 045097007 Z13.6 Patient currently is within goal of less than 140/90. We will rescreen at annual visit, sooner if needed Exercises education, guidance, and counseling 536557093 Z71.82 Advise 30 minutes 3 times a week at a minimum of purposeful exercise. Patient is not currently meeting this goal. Simple end ometrial hyperplasia 795849493 N85.01 Small focus in initial global biopsy 4 2 0. Had resolved within 1 month on hysterosco pic follow-up with use of Provera. Provera use continued x3 months. No further bleeding.. . Reviewed how HRT might influence return of bleeding. Will maintain on balanced therapy. If has persistent bleeding may need endometria l reassessme nt but technicall y had a clear reading after even 1 month of progestin treatment October 2019 Screening for malignant neoplasm of breast 067253493 Z12.31 Patient aware of due date for next Mammogram as indicated below. She will be notified by facility of result after completion . Advise yearly Clinical Breast exam with Annual exam. Body mass index 25-29 - overweight 488914476 Z68.27 Menopausal syndrome 1237 21828 N95.9 Chronic insomnia history--r ecent worsening; night sweats, vaginal dryness, mood changes, fatigue. Likely worsening with estrogen deficiency . Worsened at time of withdrawal of even vaginal estrogen supplement and Provera in November. Will check levels as below. Check also vitamin D and thyroid levels and CBC. Offered empiric trial of low-dose HRT with close follow-up. Probably some chronic mild depression /anxiety overlay Discussed also possible Effexor trial if not getting adequate effect with HRT. Reviewed may still need additional sleep aids, and/or supplement al vaginal estrogen. Good to continue melatonin with this. Vaccination needed 11194 25275 70291 Z23 plan for shingrix at future visit Insomnia 582552980 G47.0 0 Anxiety 28702524 F41.9 Fatigue 35758178 R53.83 History of abnormal uterine bleeding 433879071 Z87.42 4 2 0, 5 2 0, 6 2 0 bleeding after 8 1 8 menopausal gonadotrop in levels. Did have lower gonadotrop in levels September 2019 so may have been more perimenopa usal then. Assessment as below. No bleeding times several months Hormone re placement therapy 749818999 Z79.890 Risk and benefits of treated versus untreated estrogen deficiency short and long-term reviewed. she has many symptoms that might be amenable to HRT trial.. Agrees to trial of low-dose oral therapy, may need additional topical therapy as well Overactive urinary bladder 171963451 N32.81 Recurrent OAB syndrome, current treatment being 12 2 9 urethral dilation that has helped for now. Encouraged low-dose oral versus topical estrogen which should help (patient felt it might have adverse effect when tried in November). Continue surveillan ce with cultures as she has had documented UTI recently. Discussed if chronic symptoms despite estrogen supplement ation, plus minus antibiotic treatment, that anticholin ergic therapy might be reasonable ,. No LORENZA or U UI. She hopes to maintain follow-up for this with Meghan after Dr. Romero's fdc and will be glad to help comanage. [id number] MD Vic Andrew [facility] [place] [id number] 08/17/2020 14:03:59 08/19/2020 13:32:55 [id number] MD Vic Andrew [facility] [address] [place] [address] [place] [id number] 09/01/2020 10:54:03 09/01/2020 12:41:54 Menopausal syndrome 106425445 N95.9 Vasomotor, insomnia, and vaginal symptoms were resolved with brief trial of low-dose combined HRT in July but associated with breakthrou gh spotting so discontinu ed. Insomnia symptoms currently adequately treated with CBD oil, no recurrence of vasomotor symptoms, but has had recurrence of vaginal symptoms. Prefers topical treatment only Postmenopa usal bleeding 11638348 N95.0 Exposure t o SARS-CoV-2 478490822 Z20.822 Vaccination needed 23110 57460 43954 Z23 plan for shingrix at future visit Increased frequency of urination 551878054 R35.0 Suspect urethral symptoms are from atrophy rather than infection but will send culture Atrophic vaginitis 31287 000 N95.2 Simple end ometrial hyperplasia 296659499 N85.01 Small focus in initial global biopsy 4 2 0. Had resolved within 1 month on hysterosco pic follow-up with use of Provera. Provera 10 mg qd use continued x3 months, September through December 2019; combined HRT use x1 month July 2020. Discussed reassessme nt with recurrence of bleeding associated with combined HRT and she is agreeable to sonohyster ogram but prefers to avoid global biopsy if possible [id number] MD Vic Andrew [facility] [address] [place] [address] [place] [id number] 09/15/2020 14:03:52 09/15/2020 14:23:43 Vaccination needed 0938684279 15787 Z23 [id number] MD Vic nAdrew [facility] [address] [place] [address] [place] [id number] 09/26/2020 12:28:16 09/26/2020 13:40:35 Postmenopausal bleeding 97352937 N95.0 History of self-limit ed bleeding several months ago associated with HRT use. Completely resolved since discontinu ing systemic HRT. Normal sonohyster ogram today. No biospy today, advise to call/retur n to clinic if any further bleeding Recurrent urinary tract infection N39.0 refer back to Meghan Lee APRN for UTI's for was seeing her previously for this when she was with Dr Romero office. Menopausal syndrome 1237 99579 N95.9 No current vasomotor or sleep symptoms without systemic HRT Atrophic vaginitis 99690 000 N95.2 Has only recently gotten vaginal estrogen cream prescripti on picked up. Encourage consistent twice weekly use [id number] Meghan Lee APRN [address] [place] [id number] 09/29/2020 13:41:01 09/29/2020 14:18:05 Body mass index 25-29 - overweight 276946149 Z68.27 27.7 Patient md dical record not available 934601490 Z76.89 Recurrent urinary tract infection N39.0 - Pathophysi ology of recurrent urinary tract infections reviewed with patient. - Outlined the need for treatment and close follow-up with this. - Conservati ve measures including limiting spermicide use and postcoital voiding. - Patient was advised of over-the-c ounter regimen such as probiotics daily, twice daily cranberry supplement ation, and vitamin-C. - Patient is aware of the possible role of daily antibiotic s with recurrent infections . - Patient was educated and reports understand ing the need for a urine culture if symptomati c. I outlined the advantages of catheteriz ed specimens. - We reviewed the role of adequate estrogeniz ation of vaginal tissue. Vaginal estrogen creams or rings may also reduce the risk of clinical UTI relative to placebo or no treatment in postmenopa usal women or Depo users. Atrophic vaginitis 71790 000 N95.2 -continue THC per Dr Edmond. Menopausal syndrome 1237 16967 N95.9 [id number] Meghan Lee APRN [address] [place] [id number] 10/10/2020 11:27:22 10/10/2020 12:02:13 Recurrent urinary tract infection N39.0 - Pathophysi ology of recurrent urinary tract infections reviewed with patient.- Outlined the need for treatment and close follow-up with this.- Conservati ve measures including limiting spermicide use and postcoital voiding. - Patient was advised of over-the-c ounter regimen such as probiotics daily, twice daily cranberry supplement ation, and vitamin-C. IS TAKING UQORA. - Patient is aware of the possible role of daily antibiotic s with recurrent infections . - Patient was educated and reports understand ing the need for a urine culture if symptomati c. I outlined the advantages of catheteriz ed specimens. - We reviewed the role of adequate estrogeniz ation of vaginal tissue. Vaginal estrogen creams or rings may also reduce the risk of clinical UTI relative to placebo or no treatment in postmenopa usal women or Depo users. -DNA molecular urine testing sent today. -10/10/20- start macrobid 100mg QD for UTI prevention x 3 months. Body mass index 25-29 - overweight 178461611 Z68.27 27.7 Atrophic vaginitis 17650 000 N95.2 -continue THC per Dr Edmond. Menopausal syndrome 1237 67652 N95.9 Candidiasis of vagina 72 908282 B37.3 reported per pt with abx usage. [id number] Meghan Lee APRN [address] [place] [address] 11/21/2020 11:23:35 11/21/2020 12:22:17 Recurrent urinary tract infection 323684758 N39.0 - Pathophysi ology of recurrent urinary tract infections reviewed with patient.- Outlined the need for treatment and close follow-up with this.- Conservati ve measures including limiting spermicide use and postcoital voiding. - Patient was advised of over-the-c ounter regimen such as probiotics daily, twice daily cranberry supplement ation, and vitamin-C. IS TAKING UQORA. - Patient is aware of the possible role of daily antibiotic s with recurrent infections . - Patient was educated and reports understand ing the need for a urine culture if symptomati c. I outlined the advantages of catheteriz ed specimens. - We reviewed the role of adequate estrogeniz ation of vaginal tissue. Vaginal estrogen creams or rings may also reduce the risk of clinical UTI relative to placebo or no treatment in postmenopa usal women or Depo users. -10/10/20- start macrobid 100mg QD for UTI prevention x 3 months. (pt took about 1 month and then stopped) Atrophic vaginitis 83322 000 N95.2 -pt wants to try stopping her compounded hormone cream to see if this is causing her irritation s. Menopausal syndrome 1237 64723 N95.9 Body mass index 25-29 - overweight 728329814 Z68.27 27.7 Candidiasis of vagina 72 706125 B37.3 reported per pt with abx usage.-rep orts improvemen t in s.s with monostat but still present. [id number] MD Dayami [place] [facility] [address] [place] [address] [place] [address] 11/15/2020 14:07:03 11/15/2020 14:36:52 Vaccination needed 1521573417 39169 Z23 History of SARS-CoV-2 29 91564162 38110865 Z86.16 Covid 05/2020, desires antibody testing [id number] Meghan Lee APRN [address] [place] [id number] 01/23/2021 11:15:55 01/23/2021 11:40:43 Body mass index 25-29 - overweight 787031265 Z68.27 27.3 Recurrent urinary tract infection 924875813 N39.0 -continue vitamin C 1G BID. -continue compounded hormone cream per PHARMACIST TECHNICIAN Atrophic vaginitis 70455 000 N95.2 -continue compounded hormone cream per PHARMACIST TECHNICIAN. Menopausal syndrome 1237 69110 N95.9 -IMPROVED WITH CREAM. History of SARS-CoV-2 29 69939991 28240838 Z86.16 Covid 05/2020, desires antibody testing [id number] LACEY [place] [facility] [address] [place] [address] [place] [id number] 05/10/2021 08:47:32 05/10/2021 09:14:18 History of SARS-CoV-2 2299640152 19117118 Z86.16 [id number] Yonis Leonard DIRECTOR [employer] [address] [address] 10/09/2023 11:23:54 10/09/2023 12:10:02 Body mass index 25-29 - overweight 456310154 Z68.29 Overweight 454669771 E66 .3 Acute bronchitis 1102834 2 J20.9 [id number] Yonis Leonard [address] [address] 02/24/2024 09:57:38 02/24/2024 11:16:23 HIV screening declined 9494825706 81612 Z53.20 Hepatitis C screening declined 5645418642 5105 Z53.20 Menopausal flushing 1983 33483 N95.1 Ear lobe skin crease 418 034356 H61.199 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 [id number] Yonis Leonard [address] [address] 02/14/2025 08:16:52 02/14/2025 09:01:45 Pain of knee region 1395351602 M25.561 G89.29 13053041 chronic pain but now acute increase in pain Soft tissue swelling [address] neck Health Concerns Section Related Observation LastModified by Organization Detai ls LastModified Time None Recorded Concern Status LastModified by Organization Details LastModified Time None Recorded Advance Directives Directive N: Payers Insurance Date Sequence Insurance Name Policy Number Policy Flores Covered Member ID Flores Member ID Guarantor Name 03/24/2025 1 [place] [id number] Evan Mtz [id number] Courtney Mtz 02/16/2025 [place] [id number] Courtney Mtz [id number] Courtney Mtz 02/16/2025 1 [place] [id number] Courtney Mtz [id number] Courtney Mtz 10/09/2023 1 [place] [id number] Evan Mtz [id number] Courtney Mtz Notes Date Note Type Note Provider Name and Address Organization Details Recorded Time 01/23/2021 text/html Lower Urinary Tr act Symptoms (LUTS)Reported by PatientHPIFor location, patient reportsbladder. For quality, patient reportsintermittent. For severity, patient reportsmoderate. For onset/timing, patient reports> 1 year. For duration, patient reportschronic. For context, patient reportssuccess with short term antibiotics,history of bladder infections, andhas seen urologist (dr romero). For associated symptoms, patient reportsno abdominal pain,no groin pain,no flank pain,no low back pain,no chills,no fever,no constipation,no diarrhea,no nausea,no vomiting,no temperaure,good force of stream,no straining,no post void dribbling,no hesitancy,empties well,no urgency,no frequency,no dysuria,no incontinence,no nocturia,no urine odor, andno gross hematuria.-reports prior sensitivity to premarin and estradiol. is using compounded hormone cream now. reports irritation for 2-3 days following application. questions if this could be causing her irritations. Recurrent UTIReported by PatientHPIFor severity, patient reportsmoderate. For duration, patient reportsintermittent. For onset/timing, patient reports3 years. For context, patient reportsculture results: e. coli.-05/2020- Cystoscopy and urethral dilation by Dr Romero- examination was normal of the tract. -UTI in june 2020.-04/29/19- UCx- ECOLI (resist TMP)-05/26/19- UCx- neg-01/14/20- UCx- neg-02/23/20- UCx- ECOLI (resist TMP)-05/10/20- UCx- ECOLI, enterococcus faecalis (resist TMP)-06/29/20- UCx- enterococcus faecalis- 09/01/20- UCx showed Ecoli. (susept TMP) Took Macrobid x 7 days (no improvment) then Augmentin x7 days (felt better, but then recurred quickly).-09/26/20- UCx- ECOLI. (susceptible TMP) tx cefuroxime 250mg BID x 7d--10/10/20- started macrobid 100mg daily x 3 months for uti prevention.-10/31/20- UCx negative.-11/21/20- UCx- Ecoli (only 500CFU- not tx)-01/07/21- started using compounded hormone cream per - Dr Claudia Beasley in [place].ROS as noted in the HPI PT REPORTS SHE HAS BEEN FEELING GREAT AND HAS NO URINARY SYMPTOMS SINCE STARTING COMPOUNDED HORMONE CREAM. Also requesting covid antibody screen repeated.She denies any other issues or concerns.Denies constitutional s/sx. Meghan [place], [employer] [address], [place], [address], [place] [facility] 01/23/2021 11:37:35 05/10/2021 text/html Pt here with daughter for her f/u appointment and requests rpt Covid antibody testing. Larisa Nikita, [employer] [address], [place], [address], [place] [facility] 05/10/2021 09:03:34 10/09/2023 text/html ROS as noted in the HPI 58 yr old female presents for burning in chest with inspiration. She had congestion and sinus issues last week and now it is in her chest. coughing up thick dark sputum. daughter just over strep Yonis Leonard, [employer] [address], [place], [address], [place] [facility] 10/09/2023 13:24:07 02/24/2024 text/html ROS as noted in the HPI 58 year old female who presents to the office today toestablish careanxiety- needs a refill on duloxetineprevious PCP was Dr. Brambila who retired.right knee pain- cracks/pops when straightening leg, locks up at times, pain with going up and down stairs- will think about seeing someonept c/o itching to ear canals Yonis Leonard, [employer] [address], [place], [address], [place] [facility] 02/24/2024 14:49:44 02/14/2025 text/html 59 yr old female presents for right knee pain- chronic pain and crepitus, pt states now anytime she goes up steps the pain is 8-10. left neck swelling at the base of neck. pt states she does have soreness and a dull pain to entire neck. no problems swallowing. Yonis Leonard, [employer] [address], [place], [address], [place] [facility] 02/14/2025 09:29:05 OBGyn Episode No OBEpisode recorded.
--- NOTE | 2025-04-15 12:01 | ECG_ITS ---
APPROVED REPORT Exam: Resting ECG HR:73 bpm ECG Measurements Heart Rate 73 AXES LA 143 P 47 QRSd 78 QRS 53 QT 390 T 40 QTc 416 Conclusion SINUS RHYTHM NORMAL ECG UNCONFIRMED REPORT Electronically signed by : Shahram Khalil MD 04/15/2025 17:21:09
[2025-04-15 12:37] LABS: Alanine Aminotransferase 39 U/L (12-78); Albumin Level 4.6 g/dl (3.5-5.0); Albumin/Globulin Ratio 1.2 (1.1-1.8); Alkaline Phosphatase 88 U/L (38-126); Anion Gap 12.5 mEq/L (5-15); Aspartate Amino Transferase 69 U/L (14-36); Bilirubin,Total 1.3 mg/dl (0.2-1.3); Blood Urea Nitrogen 13 mg/dl (7-17); Calcium 8.8 mg/dl (8.4-10.2); Carbon Dioxide 21 mmol/L (22.0-30.0); Chloride 105 mmol/L (98-107); Creatinine Clearance Estimated 122 mL/min (50-200); Creatinine,Serum 0.70 mg/dl (0.52-1.04); Estimated Glomerular Filt Rate 86 ml/min (>60); GFR (African American) 104 ML/MIN (>60); Globulin 3.7 g/dL (1.3-3.2); Glucose 102 mg/dl (74-100); Potassium 4.5 mmoL/L (3.5-5.1); Sodium 134 mmol/L (136-145); Total Protein,Serum 8.3 g/dl (6.3-8.2)
== END 2025-04-15 23:59 | disposition home or self-care (01) ==
LOC: PREOP 11:16
PROVIDERS: PCP Nurse Practitioner Family; Visit Provider Obstetrics & Gynecology
DX: Z01.810 Encounter for preprocedural cardiovascular examination (principal); Z01.812 Encounter for preprocedural laboratory examination
CPT/HCPCS: 80053; 93005

== ENCOUNTER 2025-04-22 07:05 | Day surgery (SDC) | payer BC, SELFPAY ==
[2025-04-22] VITALS (10 sets, daily range): BP systolic 120–151; BP diastolic 74–96; PULSE 78–104; RESP 16–18; TEMP 36.2–36.6; O2SAT 94–100
[2025-04-22] MEDS: LACTATED RINGERS 1000ML 1,000 ML 25 ML IV (07:38)
[2025-04-22 07:42] LABS: Hematocrit 42.2 % (37.0-47.0); Hemoglobin 13.8 g/dL (12.2-16.2); Immature Granulocytes % 0.6 %; Mean Corpuscular HGB Conc 32.7 g/dL (31.8-35.4); Mean Corpuscular Hemoglobin 31.4 pg (27.0-31.2); Mean Corpuscular Volume 96.1 fl (81-99); Nucleated Red Blood Cells % 0 %; Platelet Count 309 K/mm3 (142-424); Red Blood Count 4.39 M/mm3 (4.20-5.40); Red Cell Distribution Width-SD 42.5 fL; White Blood Count 6.8 K/mm3 (4.8-10.8)
--- NOTE | 2025-04-22 08:39 | EXP.ANES.CKL ---
[facility] Disclaimer: The information contained in this section may have been updated after the patient was seen, as this information can be updated by other users. Medical History Other fracture of left lower leg, initial encounter for closed fracture Endometrial thickening on ultrasound Lichen sclerosus Anxiety Psoriasis Surgical History History of open reduction and internal fixation (ORIF) procedure History of delivery History of skin graft History of cholecystectomy H/O dilation and curettage History of salpingectomy Family History Other Coronary artery disease Heart attack Hyperlipidemia Hypertension Social History Smoking Status: Never smoker alcohol intake: current alcohol intake frequency: holidays/special occasions only substance use type: denies use current occupational status: employed Travel in the last 8 weeks?: None Have you lived/traveled outside US in past 30 days?: No Contact w/someone who lives/traveled outside US past 30 days?: No Exposure to someone with infectious disease in past 14 days?: No Do you have a fever (greater than 100.4 F or 38 C)?: No Have you tested positive for COVID-19?: No Exposed to someone with COVID-19 in past 14 days?: No Do you have a sore throat?: No Do you have a cough?: No Do you have any weakness?: No Do you have any diarrhea?: No Are you experiencing any unusual bleeding?: No Do you have any muscle aches/pain?: No Do you have any abdominal pain?: No Are you experiencing loss of taste or smell?: No [facility] Anesthesia Checklist Patient Identification Patient Identification: Arm Band Structural Data Admitted From: Home Planned Operative Procedure/s: Hysteroscopy, D&C, Myosure Consent for Planned Operative Procedure(s) Verified: Yes Verified Documents: Surgical Consent and History and Physical NPO Status Verified Time NPO: 06:00 (Gatorade) Additional verifications Anesthesia Reactions: Yes (Nausea) Hx Blood Transfusions: No Blood Transfusion Reaction: No Airway Assessment Mallampati Score:: Class II C-Spine Mobility Assessed: Yes TMJ Mobility Assessed: Yes Dentition: Good Dentition Neurological Assessment Level of Consciousness: Awake, Alert and Appropriate Anesthesia Plan Anesthesia Risk discussed: Yes Anesthesia Plan: Verified ASA Class: II Anesthesia Type: General
--- NOTE | 2025-04-22 09:11 | P.PNANES_ITS ---
[facility] Anesthesia Record Part I Anesthesia Record I Intake, IV Amount: 900 Hydration: Adequate Estimated blood loss (mL): 5 Urine output (mL): 0 Blood Products used (#): none Blood Pressure: 147/78 SaO2: 94 Pulse Rate: 104 Airway Patency: Patent Respiratory Rate: 16 Temperature: 97.8 F Patient is:: Drowsy and Stable Stable to PACU at:: 09:10
--- NOTE | 2025-04-22 09:19 | P.OP_ITS ---
Date of procedure: 04/22/25 Pre-op Diagnosis:: 1. Thickened endometrium on transvaginal ultrasound 2. Vaginal atrophy Post-op Diagnosis:: 1. Thickened endometrium on transvaginal ultrasound 2. Vaginal atrophy Procedure performed:: 1. 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 Last period was years ago. She had a transvaginal ultrasound through [facility] that showed an increase in endometrial thickness from the prior year. After that ultrasound she had a 5 day period. No bleeding since. She admits she was using estradiol vaginal cream about 1 gram three times a week. She stopped it a few weeks ago. She admits vaginal dryness/pressure and urinary frequency has returned since stopping estradiol. She has not had any further problems with lichen sclerosis. She is feeling well. Last pap smear was 10/10/23 - negative. Mammogram scheduled 06/04/25. Ultrasound findings at on 01/18/25 - Endometrium - 1.4 cm, thickened; previously .5 cm on January 20, 2024. Operative findings:: 1. On bimanual exam, uterus normal size and shape, midposition. No adnexal masses palpated 2. Vaginal atrophy with pale mucosa and loss of rugae. Small, stenotic cervix 3. On hysteroscopic exam, bilateral tubal ostia easily visualized. Scant atrophic endometrial tissue noted. No masses or polyps seen. Operative note:: Risks, benefits and alternatives were discussed with the patient. Risks include but are not limited to bleeding, infection, uterine perforation and VTE. Patient voiced understanding and agreed to proceed. She was wheeled back to the operating room and placed under general anesthesia without difficulty. She was placed in dorsal lithotomy position and prepped and draped in the normal sterile fashion. Straight catheter was used to drain the bladder. A bimanual exam was performed. A weighted Auvard was placed in the vaginal vault. Single tooth tenaculum was placed on anterior lip of the cervix. Uterus sounded to 8. Sequential Milad dilators were used to dilate the cervical os. Hysteroscope was tested inserted through the cervix without difficulty. Endometrial cavity was evaluated. See findings above. Pictures were taken. A medium size sharp curette was inserted through the cervix into the uterine cavity and endometrium was curetted with a systematic back and forth movement in a 360 degree manner. All endometrial curettings will be sent to pathology for review. Instruments were removed from the vagina. Tenaculum site was noted to oozing. Silver nitrate was applied to tenaculum site. Hemostasis was noted. Patient was awaken from anesthesia without difficulty. She was transported to recovery room in stable condition. Patient will be discharged home when awake and ambulating. She was given postop instructions as well as instructions to follow-up in the office in 2 weeks. Condition: stable Disposition: same day Specimens:: 1. Endometrial curettings Complications:: None
--- NOTE | 2025-04-22 10:23 | P.PNANES_ITS ---
[facility] Anesthesia Record Part II Anesthesia Record Part II Discharge Time: 10:11 Destination: Surgical Day Care (OP Surgery) PACU nurse assessment reviewed?: Yes Patient Condition:: Good Anesthesia Complications:: None Swallowing reflex intact?: Yes Airway Patency: Patent Cyanosis?: No Blood Pressure: 123/79 SaO2: 99 Respiratory Rate: 18 Pulse Rate: 89 Temperature: 97.8 F Mental Status: Alert & Oriented Pain level:: 0 Nausea and/or vomitting:: None Intake, IV Amount: 0 Hydration: Adequate
== END 2025-04-22 10:29 | disposition home or self-care (01) ==
PROVIDERS: PCP Nurse Practitioner Family; Visit Provider Obstetrics & Gynecology
PROC: 0UDB8ZZ Extraction of Endometrium, Via Natural or Artificial Opening Endoscopic (ICD-10-PCS; CPT 58558; principal; 2025-04-22 08:30)
DX: N95.2 Postmenopausal atrophic vaginitis (principal); Z88.1 Allergy status to other antibiotic agents; Z88.2 Allergy status to sulfonamides; Z90.49 Acquired absence of other specified parts of digestive tract
CPT/HCPCS: 58558; 85025; J1100; J1885; J2003; J2250; J2405; J2704; J3010; J7120